=== PATIENT | male | born 1940 ===

== ENCOUNTER 2017-05-08 08:39 | Day surgery (SDC) | payer MEDICARE, OTHER ==
[2017-05-08 08:58] VITALS: BMI 36.5
[2017-05-08 09:55] VITALS: BP 139/65; PULSE 73; TEMP 97.9
[2017-05-08] MEDS ORDERED: Iodixanol 320 MG/ML 100 ML BOTTLE IV ONE (11:38)
[2017-05-08] MEDS ORDERED: Iodixanol 320 MG/ML 200 ML BOTTLE IV ONE (11:38)
[2017-05-08] MEDS ORDERED: Lidocaine 2% Inj (20ml) ONE (11:39)
--- NOTE | 2017-05-08 12:53 | PCM.SURG1 ---
Surgeon's Initial Post Op Note - Surgeon's Notes Surgeon: lizette Paratransit Driver: 0 Type of Anesthesia: IV Sedation Anesthesia Administered By: jc Pre-Operative Diagnosis: claudication right leg Operative Findings: claudication right leg Post-Operative Diagnosis: same Operation Performed: aortofemoral angiogram with selective cath of right Specimen/Specimens Removed: 0 Estimated Blood Loss: EBL {In ML}: 25 Drains Used: No Drains Post-Op Condition: Good Date of Surgery/Procedure: 05/08/17 Time of Surgery/Procedure: 12:53
[2017-05-08] MEDS ORDERED: Oxycodone/Acetaminophen 5/325 mg Tab PO ONE (13:45)
[2017-05-08] MEDS ORDERED: Oxycodone/Acetaminophen 5/325 mg Tab ONE (13:51)
[2017-05-08 16:38] VITALS: RESP 18; O2SAT 100
--- NOTE | 2017-05-09 09:59 | VAS ---
DATE OF PROCEDURE: 05/08/2017 PREOPERATIVE DIAGNOSIS: Claudication, right leg. POSTOPERATIVE DIAGNOSIS: Claudication, right leg. PROCEDURE CARRIED OUT: Aortofemoral angiogram via left groin selective catheterization of right femoral artery. SURGEON: Dr. Baldwin. ROVING SIZER: None. ANESTHESIOLOGIST: Dr. Veronica. ANESTHESIA: Local anesthesia. The patient is a 76-year-old male with severe claudication involving the right leg. OPERATIVE FINDINGS: 1. It should be noted that on similar films, the images are reversed from right to left side. This has to be carefully noted interpreting the films. This is primarily in the aorta and iliac segments. The aorta and iliac artery are free of significant occlusive disease. There was approximately a 30% stenosis in the mid portion of the external iliac artery on the patient's left side. Below this, the superficial femoral artery was patent on the left side. With good runoff via trifurcation with all vessels being seen. There were scattered areas of stenosis throughout this but none greater than 30%. On the patient's right side, there was a flush occlusion of the superficial femoral artery at its origin and reconstitution just at the level of Edu's canal or across the bone. Below this, there was 3-vessel runoff. Subsequent to the performance of the diagnostic arteriogram, a stiff-angled glidewire and a 7-Vietnamese sheath were positioned over the aortic bifurcation in the distal portion of the external iliac artery. Using road mapping techniques and angled films, we were able to cross into the proximal portion of the superficial femoral artery and advance a Glidewire down to the distal portion. Using a variety of wires and techniques, we were unable to adequately reenter into the lumen of the popliteal artery. After attempting this for quite sometime, we abandoned the procedure, deployed a Perclose device on the left. The operation carried out aortofemoral angiogram with selective catheterization of right femoral artery. No intervention was undertaken. If the patient's symptoms continue to worsen, a bypass would be the most likely treatment. Boyd Baldwin Jr., MD cc: Dr. Yarely CABRALES
== END 2017-05-08 16:05 | disposition home or self-care (01) ==
LOC: C.SPRAD 08:39
PROVIDERS: ATTEND Surgery Vascular Surgery
DX: I70.211 Atherosclerosis of native arteries of extremities with intermittent claudication, right leg (principal)

== ENCOUNTER 2017-06-13 06:11 | Inpatient (IN) | payer MEDICARE, OTHER ==
[2017-06-06 08:13] VITALS: BMI 37.5
[2017-06-13] MEDS ORDERED: ceFAZolin IV 2 gm in Dextrose 1 GM/50 ML BAG IVPB ONE (06:49)
[2017-06-13] MEDS ORDERED: HEPARIN-NS 5,000 UNITS/500 ML 10,000 UNIT/1,000 ML BAG IV ONE (06:50)
[2017-06-13] MEDS ORDERED: Thrombin Topical 20,000 Intl Units Spray Kit TOP ONE (06:50)
[2017-06-13] MEDS ORDERED: Iodixanol 320 MG/ML 200 ML BOTTLE IV ONE (06:50)
[2017-06-13] MEDS ORDERED: Bacitracin 50,000 UNIT in Sodium Chloride 0.9% Irrig 1,000 ML IR SCH (07:18)
[2017-06-13] MEDS ORDERED: Etomidate 20 mg/10ml Inj IV ONE (07:24)
[2017-06-13] MEDS ORDERED: Lactated Ringer's 1,000 ML IV ONE ×3 (07:55→13:43)
[2017-06-13] MEDS ORDERED: HEPARIN-NS 5,000 UNITS/500 ML 5,000 UNIT/500 ML BAG IV ONE ×2 (08:55→10:21)
[2017-06-13] MEDS ORDERED: Rocuronium 10 mg/ml (5 ml) ONE (12:39)
[2017-06-13] MEDS ORDERED: Morphine 4 MG/ML VIAL ONE ×2 (13:10→13:13)
[2017-06-13] MEDS ORDERED: Neostigmine Methylsulfate 3mg/3ml Syringe IV ONE (13:29)
--- NOTE | 2017-06-13 15:02 | PCM.SURG1 ---
Surgeon's Initial Post Op Note - Surgeon's Notes Surgeon: Nicolasa Merchandising Lead: PGY4 Type of Anesthesia: General Endo Pre-Operative Diagnosis: R SFA occlusion, PVD Operative Findings: arterial calcifications Post-Operative Diagnosis: R SFA occlusion, PVD Operation Performed: R Femoral-poplital bypass with reversed [place] (right) saphenous vein graft, intraoperative angiogram Specimen/Specimens Removed: N/A Estimated Blood Loss: EBL {In ML}: 500 Blood Products Given: N/A Drains Used: No Drains Post-Op Condition: Good Date of Surgery/Procedure: 06/13/17 Time of Surgery/Procedure: 07:55
[2017-06-13 15:05] LABS: BASO % 0.3 % (0.0-2.0); EOS # 0.2 K/uL (0.0-0.7); EOS % 3.2 % (0.0-4.0); LYMPH # 1.3 K/uL (1.0-4.3); LYMPH % 19.1 % (20.0-40.0); MEAN CELL VOLUME 85.8 fL (80.0-94.0); MEAN CORPUSCULAR HEMOGLOBIN 28.3 pg (27.0-31.0); MEAN PLATELET VOLUME 8.1 fL (7.2-11.7); MONO # 0.5 K/uL (0.0-0.8); MONO % 8.1 % (0.0-10.0); NRBC % 0.1 % (0.0-2.0); RED CELL DISTRIBUTION WIDTH 17.8 % (11.5-14.5); WHITE BLOOD COUNT 6.6 K/uL (4.8-10.8)
[2017-06-13] MEDS: HYDROmorphone 0.5 mg/0.5 ml ISec IVP PRN ×4 (15:24→22:15)
--- NOTE | 2017-06-13 16:48 | RAD ---
Oral contrast only. PROCEDURE: HISTORY: Peripheral vascular disease: Angiogram right leg COMPARISON: None TECHNIQUE: Total fluoroscopic time utilized during the procedure: 21.4 seconds. Total dose 0.67 mGy cm squared FINDINGS: Submitted images from the current procedure: 3 Please refer to the physician's notes performing the procedure. IMPRESSION: Less than 1 hour fluoroscopic time utilized during performance of the procedure
[2017-06-13] MEDS: Sodium Chloride 0.9% 1,000 ML IV SCH (17:00)
[2017-06-13] MEDS: (Novolin R) Insulin Human Regular 100 units/ml vial SC SCH ×2 (17:07→22:21)
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
[2017-06-14] MEDS: Sodium Chloride 0.9% 1,000 ML IV SCH ×3 (02:00→12:39)
[2017-06-14 06:41] LABS: BASO % 0.5 % (0.0-2.0); EOS # 0.1 K/uL (0.0-0.7); EOS % 1.7 % (0.0-4.0); HEMATOCRIT 28.2 % (35.0-51.0); LYMPH # 0.8 K/uL (1.0-4.3); LYMPH % 10.2 % (20.0-40.0); MEAN CELL VOLUME 86.6 fL (80.0-94.0); MEAN CORPUSCULAR HEMOGLOBIN 28.3 pg (27.0-31.0); MEAN CORPUSCULAR HGB CONC 32.6 g/dL (33.0-37.0); MEAN PLATELET VOLUME 8.4 fL (7.2-11.7); MONO # 0.8 K/uL (0.0-0.8); MONO % 9.8 % (0.0-10.0); NRBC % 0.1 % (0.0-2.0); RED CELL DISTRIBUTION WIDTH 18.3 % (11.5-14.5); WHITE BLOOD COUNT 7.8 K/uL (4.8-10.8)
--- NOTE | 2017-06-14 06:58 | OP ---
PROCEDURE DATE: 06/13/2017 PREOPERATIVE DIAGNOSIS: Claudication right leg. POSTOPERATIVE DIAGNOSIS: Claudication right leg. PROCEDURE: Right femoral and popliteal bypass with reverse saphenous vein with intraoperative arteriogram. SURGEON: Boyd Baldwin Jr., MD ASSISTANTS: Dr. Vidal and JUANA Mortensen ANESTHESIA ADMINISTERED BY: Bart. INDICATIONS: The patient is an older middle age man with history of coronary problems in the past, who has severe claudication in the right leg. OPERATIVE FINDINGS: 1. Upon the completion of arteriogram shows satisfactory distal anastomosis with good runoff near the anterior tibial. 2. The proximal anastomosis is carried out uneventfully. The only technical problem encountered in the operation was blood loss of 350 to 500 mL primarily due to bleeding, which occurred at the distal anastomosis after completion of the proximal anastomosis and this was due to some bleeding from wall. Other vessel, which we had to crush to allow for passage of sutures that was severely calcified. After this was remedied, the bleeding stopped and this was checked again and again for bleeding to make sure it is completely dry and it was. Then we closed the wounds with Monocryl and Vicryl sutures, closed the skin with skin clips. The vein has been carefully dissected from the groin down to the mid calf. It was of good size and caliber. The distal anastomosis was carried out using tourniquet control and loop magnification, heparin anticoagulation and proximal anastomosis with clamp control. As I said at the completion, the intraoperative arteriogram was of excellent quality ensure good flow, proximal anastomosis was satisfactory. The patient tolerated the procedure uneventfully without the untoward effects except for the bleeding as I mentioned from the segment of the distal anastomosis, which was remedied quickly. Operation carried out right femoral and popliteal bypass using reverse saphenous vein with intraoperative arteriogram. The anastomosis was carried out below the popliteal artery. Boyd Baldwin Jr., MD
[2017-06-14 07:04] LABS: CHLORIDE 99 mmol/L (98-107); POTASSIUM 4.4 mmol/L (3.6-5.2); SODIUM 130 mmol/L (132-148)
[2017-06-14 07:06] LABS: GFR AFRICAN-AMERICAN > 60
[2017-06-14 07:07] LABS: ALKALINE PHOSPHATASE 57 U/L (38-126); ALT/SGPT 32 U/L (21-72); AST/SGOT 29 U/L (17-59); BLOOD UREA NITROGEN 10 mg/dL (9-20); CARBON DIOXIDE 22 mmol/L (22-30); GLUCOSE,RANDOM 164 mg/dL (75-110); TOTAL PROTEIN 5.8 g/dL (6.3-8.3)
[2017-06-14 07:08] LABS: MAGNESIUM 1.4 mg/dL (1.6-2.3); PHOSPHOROUS 3.7 mg/dL (2.5-4.5)
[2017-06-14] MEDS: (Novolin R) Insulin Human Regular 100 units/ml vial SC SCH ×4 (08:50→22:24)
[2017-06-14] MEDS: Magnesium Sulfate 1 gm in D5W 1 GM/100 ML BAG IVPB SCH ×2 (08:52→10:00)
[2017-06-14] MEDS ORDERED: Home Med 1 UNIT (Mirabegron [Myrbetriq] 50 MG) PO SCH (10:00)
[2017-06-14] MEDS ORDERED: Home Med 1 UNIT (Naloxegol Oxalate [Movantik] 25 MG) PO SCH (10:00)
[2017-06-14] MEDS ORDERED: Home Med 1 UNIT (Febuxostat [Uloric] 40 MG) PO SCH (10:00)
--- NOTE | 2017-06-14 10:14 | CP.PCM.PN ---
Subjective - Date & Time of Evaluation Date of Evaluation: 06/14/17 Time of Evaluation: 07:55 - Subjective Subjective: Vascular surgery Pt S&E, NAEO. Pain well controlled, knee brace off. tolerating diet. No complaints at this time. Objective - Vital Signs/Intake and Output Vital Signs (last 24 hours): Temp Pulse Resp BP Pulse Ox 98.5 F 85 18 148/53 L 100 06/14/17 04:00 06/14/17 07:00 06/14/17 07:00 06/14/17 06:46 06/14/17 07:00 Intake and Output: 06/14/17 06/14/17 06:59 18:59 Intake Total 2160 110 Output Total 1160 200 Balance 1000 -90 - Medications Medications: Current Medications Acetaminophen (Tylenol 325mg Tab) 975 mg PO Q8H [facility] Last Admin: 06/14/17 06:19 Dose: 975 mg Allopurinol (Zyloprim) 100 mg PO DAILY [facility] Last Admin: 06/14/17 10:03 Dose: 100 mg Atenolol (Tenormin) 25 mg PO DAILY [facility] Clopidogrel Bisulfate (Plavix) 75 mg PO DAILY [facility] Last Admin: 06/14/17 10:00 Dose: 75 mg Docusate Sodium (Colace) 100 mg PO BID [facility] Last Admin: 06/14/17 10:00 Dose: 100 mg Escitalopram Oxalate (Lexapro) 10 mg PO DAILY [facility] Last Admin: 06/14/17 10:01 Dose: 10 mg Famotidine (Pepcid) 20 mg PO BID [facility] Last Admin: 06/14/17 10:01 Dose: 20 mg Heparin Sodium (Porcine) (Heparin) 5,000 units SC Q12 [facility] Last Admin: 06/14/17 10:00 Dose: 5,000 units Hydromorphone HCl (Dilaudid) 0.5 mg IVP Q10M PRN PRN Reason: Pain, severe (8-10) Last Admin: 06/13/17 15:45 Dose: 0.5 mg Hydromorphone HCl (Dilaudid) 0.5 mg IVP Q3H PRN PRN Reason: Pain, moderate (4-7) Last Admin: 06/13/17 22:15 Dose: 0.5 mg Sodium Chloride (Sodium Chloride 0.9%) 1,000 mls @ 110 mls/hr IV .Q9H6M [facility] Last Admin: 06/14/17 08:55 Dose: Not Given Insulin Human Regular (Novolin R) 0 unit SC ACHS [facility] PRN Reason: Protocol Last Admin: 06/14/17 08:50 Dose: 3 unit Lisinopril (Zestril) 5 mg PO DAILY [facility] Last Admin: 06/14/17 10:02 Dose: 5 mg Ondansetron HCl (Zofran Inj) 4 mg IVP Q4 PRN PRN Reason: Nausea/Vomiting Rosuvastatin Calcium (Crestor) 5 mg PO HS [facility] Last Admin: 06/13/17 22:14 Dose: 5 mg - Labs Labs: 06/14/17 06:25 06/14/17 06:26 - Constitutional Appears: Non-toxic, No Acute Distress - Head Exam Head Exam: ATRAUMATIC, NORMOCEPHALIC - Respiratory Exam Respiratory Exam: NORMAL BREATHING PATTERN. absent: Respiratory Distress - Cardiovascular Exam Cardiovascular Exam: RRR - GI/Abdominal Exam GI & Abdominal Exam: Soft. absent: Distended, Tenderness - Extremities Exam Extremities Exam: Pedal Edema (mild) Additional comments: Dressing Intact with serosanguinous staining. knee brace removed. PT and DP pulses palpable on R. - Neurological Exam Neurological Exam: Alert, Awake, Oriented x3 - Skin Skin Exam: Dry, Warm Assessment and Plan - Assessment and Plan (Free Text) Assessment: 76M S/P R fem-pop bypass with reversed vein graft POD#1 Plan: Ok to go to floor. Monitor for bleeding, Recheck Hgb in AM. Claudio Recinos DC Art line. Will D/W Dr. Nicolasa Vidal PGY4
[2017-06-14] MEDS: HYDROmorphone 0.5 mg/0.5 ml ISec IVP PRN (14:26)
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
[2017-06-14 18:38] VITALS: RESP 20
[2017-06-15] MEDS: HYDROmorphone 0.5 mg/0.5 ml ISec IVP PRN ×2 (05:46→12:30)
[2017-06-15 06:20] LABS: BASO % 0.2 % (0.0-2.0); EOS # 0.1 K/uL (0.0-0.7); EOS % 1.7 % (0.0-4.0); LYMPH # 0.9 K/uL (1.0-4.3); LYMPH % 12.1 % (20.0-40.0); MEAN CELL VOLUME 86.5 fL (80.0-94.0); MEAN CORPUSCULAR HEMOGLOBIN 28.3 pg (27.0-31.0); MEAN CORPUSCULAR HGB CONC 32.7 g/dL (33.0-37.0); MEAN PLATELET VOLUME 7.8 fL (7.2-11.7); MONO % 12.6 % (0.0-10.0); RED CELL DISTRIBUTION WIDTH 18.7 % (11.5-14.5); WHITE BLOOD COUNT 7.7 K/uL (4.8-10.8)
[2017-06-15 06:35] LABS: CHLORIDE 103 mmol/L (98-107)
[2017-06-15 06:36] LABS: SODIUM 134 mmol/L (132-148)
[2017-06-15 06:38] LABS: ALB/GLOB RATIO 0.9 (1.0-2.1); ALKALINE PHOSPHATASE 85 U/L (38-126); ALT/SGPT 32 U/L (21-72); AST/SGOT 26 U/L (17-59); BILIRUBIN,TOTAL 0.8 mg/dL (0.2-1.3); BLOOD UREA NITROGEN 9 mg/dL (9-20); CARBON DIOXIDE 23 mmol/L (22-30); GFR AFRICAN-AMERICAN > 60; TOTAL PROTEIN 6.2 g/dL (6.3-8.3)
[2017-06-15 06:39] LABS: CALCIUM 8.3 mg/dl (8.6-10.4); GLUCOSE,RANDOM 170 mg/dL (75-110); MAGNESIUM 1.7 mg/dL (1.6-2.3); PHOSPHOROUS 2.8 mg/dL (2.5-4.5)
--- NOTE | 2017-06-15 07:25 | CP.PCM.PN ---
Subjective - Date & Time of Evaluation Date of Evaluation: 06/15/17 Time of Evaluation: 07:20 - Subjective Subjective: Vascular surgery Progress Note for Dr. Baldwin Patient seen and examined at bedside. Overnight, telemetry showed PVCs in trigeminy. EKG was done and no significant change from previous study. Dr. Perera was called and made aware. Pain well controlled and tolerating diet. Patient has no complaints at this time. Objective - Vital Signs/Intake and Output Vital Signs (last 24 hours): Temp Pulse Resp BP Pulse Ox 98.5 F 81 20 113/55 L 99 06/15/17 04:51 06/15/17 04:51 06/14/17 23:45 06/15/17 04:51 06/14/17 23:45 Intake and Output: 06/15/17 06/15/17 06:59 18:59 Intake Total 850 Output Total 1700 Balance -850 - Medications Medications: Current Medications Acetaminophen (Tylenol 325mg Tab) 975 mg PO Q8H [facility] Last Admin: 06/15/17 06:31 Dose: 975 mg Allopurinol (Zyloprim) 100 mg PO DAILY [facility] Last Admin: 06/14/17 10:03 Dose: 100 mg Atenolol (Tenormin) 25 mg PO DAILY [facility] Last Admin: 06/14/17 10:33 Dose: 25 mg Clopidogrel Bisulfate (Plavix) 75 mg PO DAILY [facility] Last Admin: 06/14/17 10:00 Dose: 75 mg Docusate Sodium (Colace) 100 mg PO BID [facility] Last Admin: 06/14/17 17:25 Dose: 100 mg Escitalopram Oxalate (Lexapro) 10 mg PO DAILY [facility] Last Admin: 06/14/17 10:01 Dose: 10 mg Famotidine (Pepcid) 20 mg PO BID [facility] Last Admin: 06/14/17 17:25 Dose: 20 mg Heparin Sodium (Porcine) (Heparin) 5,000 units SC Q12 [facility] Last Admin: 06/14/17 22:27 Dose: 5,000 units Hydromorphone HCl (Dilaudid) 0.5 mg IVP Q10M PRN PRN Reason: Pain, severe (8-10) Last Admin: 06/13/17 15:45 Dose: 0.5 mg Hydromorphone HCl (Dilaudid) 0.5 mg IVP Q3H PRN PRN Reason: Pain, moderate (4-7) Last Admin: 06/15/17 05:46 Dose: 0.5 mg Insulin Human Regular (Novolin R) 0 unit SC [facility] PRN Reason: Protocol Last Admin: 06/14/17 22:24 Dose: Not Given Lisinopril (Zestril) 5 mg PO DAILY [facility] Last Admin: 06/14/17 10:02 Dose: 5 mg Ondansetron HCl (Zofran Inj) 4 mg IVP Q4 PRN PRN Reason: Nausea/Vomiting Rosuvastatin Calcium (Crestor) 5 mg PO HS [facility] Last Admin: 06/14/17 22:27 Dose: 5 mg - Labs Labs: 06/15/17 06:07 06/15/17 06:07 - Constitutional Appears: No Acute Distress - Head Exam Head Exam: ATRAUMATIC, NORMOCEPHALIC - Eye Exam Eye Exam: Normal appearance - ENT Exam ENT Exam: Mucous Membranes Moist - Respiratory Exam Respiratory Exam: NORMAL BREATHING PATTERN - Cardiovascular Exam Cardiovascular Exam: REGULAR RHYTHM - GI/Abdominal Exam GI & Abdominal Exam: Soft. absent: Tenderness - Extremities Exam Extremities Exam: Pedal Edema (mild), Tenderness (mild) Additional comments: Dressing Intact PT and DP pulses palpable on R - Neurological Exam Neurological Exam: Alert, Awake, Oriented x3 - Psychiatric Exam Psychiatric exam: Normal Affect, Normal Mood - Skin Skin Exam: Dry, Intact, Normal Color, Warm Assessment and Plan - Assessment and Plan (Free Text) Plan: 76M s/p R fem-pop bypass with reversed vein graft POD#2 f/u hgb this AM Pain control Continue to monitor pulses - papable DP and PT on R Will DW Dr. Nicolasa Contreras PGY1
[2017-06-15] MEDS: (Novolin R) Insulin Human Regular 100 units/ml vial SC SCH ×4 (07:57→22:17)
[2017-06-15] MEDS ORDERED: Magnesium Hydroxide Susp 30 ml UD PO ONE (10:22)
[2017-06-16] MEDS: (Novolin R) Insulin Human Regular 100 units/ml vial SC SCH ×4 (08:16→22:03)
--- NOTE | 2017-06-16 10:06 | CP.PCM.PN ---
Subjective - Date & Time of Evaluation Date of Evaluation: 06/16/17 Time of Evaluation: 08:05 - Subjective Subjective: SURGERY NOTE FOR DR. RICHARDS 76M POD3 s/p Fem-pop bypass. Patient was S&E at bedside, reports NAEO and has mild R. LE pain that is well managed with his current medications. Patient reports he has been out of bed and is passing flatus. Patient denies fevers, chills, SOB, chest pain. Objective - Vital Signs/Intake and Output Vital Signs (last 24 hours): Temp Pulse Resp BP Pulse Ox 98.1 F 78 20 153/75 H 99 06/16/17 09:08 06/16/17 09:08 06/16/17 09:08 06/16/17 09:08 06/16/17 09:08 Intake and Output: 06/16/17 06/16/17 06:59 18:59 Intake Total 200 Output Total 600 Balance -400 - Medications Medications: Current Medications Acetaminophen (Tylenol 325mg Tab) 975 mg PO Q8H [facility] Last Admin: 06/16/17 06:07 Dose: 975 mg Allopurinol (Zyloprim) 100 mg PO DAILY [facility] Last Admin: 06/15/17 10:45 Dose: 100 mg Atenolol (Tenormin) 25 mg PO DAILY [facility] Last Admin: 06/15/17 10:45 Dose: 25 mg Clopidogrel Bisulfate (Plavix) 75 mg PO DAILY [facility] Last Admin: 06/15/17 10:45 Dose: 75 mg Docusate Sodium (Colace) 100 mg PO BID [facility] Last Admin: 06/15/17 18:27 Dose: 100 mg Escitalopram Oxalate (Lexapro) 10 mg PO DAILY [facility] Last Admin: 06/15/17 10:47 Dose: 10 mg Famotidine (Pepcid) 20 mg PO BID [facility] Last Admin: 06/15/17 18:28 Dose: 20 mg Heparin Sodium (Porcine) (Heparin) 5,000 units SC Q12 [facility] Last Admin: 06/15/17 22:16 Dose: 5,000 units Hydromorphone HCl (Dilaudid) 0.5 mg IVP Q10M PRN PRN Reason: Pain, severe (8-10) Last Admin: 06/13/17 15:45 Dose: 0.5 mg Hydromorphone HCl (Dilaudid) 0.5 mg IVP Q3H PRN PRN Reason: Pain, moderate (4-7) Last Admin: 06/15/17 12:30 Dose: 0.5 mg Insulin Human Regular (Novolin R) 0 unit SC ACHS [facility] PRN Reason: Protocol Last Admin: 06/16/17 08:16 Dose: 2 unit Lisinopril (Zestril) 5 mg PO DAILY [facility] Last Admin: 06/15/17 10:45 Dose: 5 mg Ondansetron HCl (Zofran Inj) 4 mg IVP Q4 PRN PRN Reason: Nausea/Vomiting Rosuvastatin Calcium (Crestor) 5 mg PO HS [facility] Last Admin: 06/15/17 22:16 Dose: 5 mg - Labs Labs: 06/15/17 06:07 06/15/17 06:07 - Constitutional Appears: Non-toxic, No Acute Distress - Respiratory Exam Respiratory Exam: Clear to Ausculation Bilateral, NORMAL BREATHING PATTERN - Cardiovascular Exam Cardiovascular Exam: REGULAR RHYTHM, +S1, +S2 - Extremities Exam Additional comments: Right medial Leg incision site, clean dry intact - new dressing placed - Neurological Exam Neurological Exam: Alert, Awake - Skin Skin Exam: Dry, Intact, Normal Color, Warm Assessment and Plan - Assessment and Plan (Free Text) Assessment: 76M POD3 s/p Fem-pop bypass, vein reserved Plan: -Continue pain management -R. LE dressing changed, c/d/i -Monitor PT, DP pulses Further recs discuss with Dr Nicolasa Larson, PGY2
[2017-06-17] MEDS: HYDROmorphone 0.5 mg/0.5 ml ISec IVP PRN (05:19)
[2017-06-17] MEDS: (Novolin R) Insulin Human Regular 100 units/ml vial SC SCH ×4 (08:32→21:29)
--- NOTE | 2017-06-17 10:28 | CP.PCM.PN ---
Subjective - Date & Time of Evaluation Date of Evaluation: 06/17/17 Time of Evaluation: 10:25 - Subjective Subjective: Had some chest pain last night. Now feeling ok. Objective - Vital Signs/Intake and Output Vital Signs (last 24 hours): Temp Pulse Resp BP Pulse Ox 98.2 F 72 20 138/67 99 06/17/17 07:15 06/17/17 10:00 06/17/17 07:15 06/17/17 10:00 06/17/17 07:15 Intake and Output: 06/17/17 06/17/17 06:59 18:59 Intake Total 500 Balance 500 - Medications Medications: Current Medications Acetaminophen (Tylenol 325mg Tab) 975 mg PO Q8H [facility] Last Admin: 06/17/17 06:32 Dose: 975 mg Allopurinol (Zyloprim) 100 mg PO DAILY [facility] Last Admin: 06/17/17 10:06 Dose: 100 mg Atenolol (Tenormin) 25 mg PO DAILY [facility] Last Admin: 06/17/17 10:06 Dose: 25 mg Clopidogrel Bisulfate (Plavix) 75 mg PO DAILY [facility] Last Admin: 06/17/17 10:06 Dose: 75 mg Docusate Sodium (Colace) 100 mg PO BID [facility] Last Admin: 06/17/17 10:06 Dose: 100 mg Escitalopram Oxalate (Lexapro) 10 mg PO DAILY [facility] Last Admin: 06/17/17 10:05 Dose: 10 mg Famotidine (Pepcid) 20 mg PO BID [facility] Last Admin: 06/17/17 10:06 Dose: 20 mg Hydromorphone HCl (Dilaudid) 0.5 mg IVP Q10M PRN PRN Reason: Pain, severe (8-10) Last Admin: 06/13/17 15:45 Dose: 0.5 mg Insulin Human Regular (Novolin R) 0 unit SC ACHS [facility] PRN Reason: Protocol Last Admin: 06/17/17 08:32 Dose: 4 unit Lisinopril (Zestril) 5 mg PO DAILY [facility] Last Admin: 06/17/17 10:06 Dose: 5 mg Ondansetron HCl (Zofran Inj) 4 mg IVP Q4 PRN PRN Reason: Nausea/Vomiting Rosuvastatin Calcium (Crestor) 5 mg PO HS [facility] Last Admin: 06/16/17 22:02 Dose: 5 mg - Labs Labs: 06/15/17 06:07 06/15/17 06:07 - Head Exam Head Exam: NORMOCEPHALIC - Neck Exam Neck Exam: Normal Inspection - Respiratory Exam Respiratory Exam: NORMAL BREATHING PATTERN - Cardiovascular Exam Cardiovascular Exam: REGULAR RHYTHM - Neurological Exam Neurological Exam: Alert, Oriented x3 Assessment and Plan (1) CAD (coronary artery disease) Assessment & Plan: Stable, Chest pain atypical, check cardiac markers. continue plavix. Status: Acute (2) PAD (peripheral artery disease) Assessment & Plan: S/P surgery. vascular following. Status: Acute (3) Hyperlipidemia Assessment & Plan: Continue lipid lowering agents. Status: Acute
--- NOTE | 2017-06-17 17:13 | CP.PCM.PN ---
Subjective - Date & Time of Evaluation Date of Evaluation: 06/17/17 Time of Evaluation: 06:45 - Subjective Subjective: Vascular Surgery Pt S&E, NAEO. C/O Chest pain that he has had in the past. No other complaints. Objective - Vital Signs/Intake and Output Vital Signs (last 24 hours): Temp Pulse Resp BP Pulse Ox 98.1 F 96 H 20 156/80 H 98 06/17/17 15:35 06/17/17 16:00 06/17/17 15:35 06/17/17 15:35 06/17/17 15:35 Intake and Output: 06/17/17 06/17/17 06:59 18:59 Intake Total 500 500 Balance 500 500 - Medications Medications: Current Medications Acetaminophen (Tylenol 325mg Tab) 975 mg PO Q8H [facility] Last Admin: 06/17/17 14:51 Dose: Not Given Allopurinol (Zyloprim) 100 mg PO DAILY [facility] Last Admin: 06/17/17 10:06 Dose: 100 mg Atenolol (Tenormin) 25 mg PO DAILY [facility] Last Admin: 06/17/17 10:06 Dose: 25 mg Clopidogrel Bisulfate (Plavix) 75 mg PO DAILY [facility] Last Admin: 06/17/17 10:06 Dose: 75 mg Docusate Sodium (Colace) 100 mg PO BID [facility] Last Admin: 06/17/17 10:06 Dose: 100 mg Escitalopram Oxalate (Lexapro) 10 mg PO DAILY [facility] Last Admin: 06/17/17 10:05 Dose: 10 mg Famotidine (Pepcid) 20 mg PO BID [facility] Last Admin: 06/17/17 10:06 Dose: 20 mg Insulin Human Regular (Novolin R) [address] [facility] PRN Reason: Protocol Last Admin: 06/17/17 12:25 Dose: 4 unit Lisinopril (Zestril) 5 mg PO DAILY [facility] Last Admin: 06/17/17 10:06 Dose: 5 mg Ondansetron HCl (Zofran Inj) 4 mg IVP Q4 PRN PRN Reason: Nausea/Vomiting Rosuvastatin Calcium (Crestor) 5 mg PO HS [facility] Last Admin: 06/16/17 22:02 Dose: 5 mg - Labs Labs: 06/15/17 06:07 06/15/17 06:07 - Constitutional Appears: Non-toxic, No Acute Distress - Head Exam Head Exam: ATRAUMATIC, NORMOCEPHALIC - Respiratory Exam Respiratory Exam: NORMAL BREATHING PATTERN. absent: Respiratory Distress - Cardiovascular Exam Cardiovascular Exam: RRR - GI/Abdominal Exam GI & Abdominal Exam: Soft. absent: Distended, Tenderness - Extremities Exam Additional comments: R Groin C/D/I R LE dressing with some serosanguinous staining - Neurological Exam Neurological Exam: Alert, Awake, Oriented x3 - Skin Skin Exam: Dry, Warm Assessment and Plan - Assessment and Plan (Free Text) Assessment: 76M POD$ s/p Fem-pop bypass, with reversed vein Plan: - F/U cardiac enzymes - Rehab planning -Continue pain management -Monitor PT, DP pulses D/W Dr Nicolasa Vidal PGY4
[2017-06-18] MEDS: (Novolin R) Insulin Human Regular 100 units/ml vial SC SCH ×4 (08:19→21:07)
--- NOTE | 2017-06-18 08:31 | CP.PCM.PN ---
Subjective - Date & Time of Evaluation Date of Evaluation: 06/18/17 Time of Evaluation: 07:10 - Subjective Subjective: SURGERY NOTE FOR DR. RICHARDS 76M seen and examined at bedside. Patient denies pain in leg, able to ambulate. Objective - Vital Signs/Intake and Output Vital Signs (last 24 hours): Temp Pulse Resp BP Pulse Ox 98.4 F 76 20 147/85 97 06/18/17 07:49 06/18/17 07:49 06/18/17 07:49 06/18/17 07:49 06/18/17 07:49 Intake and Output: 06/18/17 06/18/17 06:59 18:59 Intake Total 900 Balance 900 - Medications Medications: Current Medications Allopurinol (Zyloprim) 100 mg PO DAILY [facility] Last Admin: 06/17/17 10:06 Dose: 100 mg Clopidogrel Bisulfate (Plavix) 75 mg PO DAILY [facility] Last Admin: 06/17/17 10:06 Dose: 75 mg Docusate Sodium (Colace) 100 mg PO BID [facility] Last Admin: 06/17/17 17:38 Dose: 100 mg Escitalopram Oxalate (Lexapro) 10 mg PO DAILY [facility] Last Admin: 06/17/17 10:05 Dose: 10 mg Famotidine (Pepcid) 20 mg PO BID [facility] Last Admin: 06/17/17 17:38 Dose: 20 mg Insulin Human Regular (Novolin R) 0 unit SC ACHS [facility] PRN Reason: Protocol Last Admin: 06/18/17 08:19 Dose: 3 unit Lisinopril (Zestril) 5 mg PO DAILY [facility] Last Admin: 06/17/17 10:06 Dose: 5 mg Ondansetron HCl (Zofran Inj) 4 mg IVP Q4 PRN PRN Reason: Nausea/Vomiting Oxycodone/Acetaminophen (Percocet 5/325 Mg Tab) 1 tab PO Q4H PRN PRN Reason: Pain, moderate (4-7) Stop: 06/21/17 05:54 Rosuvastatin Calcium (Crestor) 5 mg PO HS [facility] Last Admin: 06/17/17 21:29 Dose: 5 mg - Labs Labs: 06/15/17 06:07 06/15/17 06:07 - Constitutional Appears: Non-toxic, No Acute Distress - Respiratory Exam Respiratory Exam: Clear to Ausculation Bilateral, NORMAL BREATHING PATTERN - Cardiovascular Exam Cardiovascular Exam: REGULAR RHYTHM, +S1, +S2 - Extremities Exam Additional comments: right leg incisions CDI Palpable right leg pulses Doppler signals b/l - Neurological Exam Neurological Exam: Alert, Awake Assessment and Plan - Assessment and Plan (Free Text) Assessment: 76M s/p Right fem-pop bypass with reversed vein Plan: - Patient to work with physical therapy - Clear for DC to rehab Further recs discuss with Dr. Nicolasa Larson, PGY2
--- NOTE | 2017-06-18 09:39 | CP.PCM.PN ---
Subjective - Date & Time of Evaluation Date of Evaluation: 06/18/17 Time of Evaluation: 09:00 - Subjective Subjective: No chest pain or shortness of breath. Objective - Vital Signs/Intake and Output Vital Signs (last 24 hours): Temp Pulse Resp BP Pulse Ox 98.4 F 87 20 149/68 97 06/18/17 07:49 06/18/17 09:20 06/18/17 07:49 06/18/17 09:20 06/18/17 07:49 Intake and Output: 06/18/17 06/18/17 06:59 18:59 Intake Total 900 Balance 900 - Medications Medications: Current Medications Allopurinol (Zyloprim) 100 mg PO DAILY [facility] Last Admin: 06/18/17 09:35 Dose: 100 mg Clopidogrel Bisulfate (Plavix) 75 mg PO DAILY [facility] Last Admin: 06/18/17 09:35 Dose: 75 mg Docusate Sodium (Colace) 100 mg PO BID [facility] Last Admin: 06/18/17 09:35 Dose: 100 mg Escitalopram Oxalate (Lexapro) 10 mg PO DAILY [facility] Last Admin: 06/18/17 09:35 Dose: 10 mg Famotidine (Pepcid) 20 mg PO BID [facility] Last Admin: 06/18/17 09:35 Dose: 20 mg Insulin Human Regular (Novolin R) 0 unit SC [facility] PRN Reason: Protocol Last Admin: 06/18/17 08:19 Dose: 3 unit Lisinopril (Zestril) 5 mg PO DAILY [facility] Last Admin: 06/18/17 09:35 Dose: 5 mg Ondansetron HCl (Zofran Inj) 4 mg IVP Q4 PRN PRN Reason: Nausea/Vomiting Oxycodone/Acetaminophen (Percocet 5/325 Mg Tab) 1 tab PO Q4H PRN PRN Reason: Pain, moderate (4-7) Stop: 06/21/17 05:54 Rosuvastatin Calcium (Crestor) 5 mg PO [facility] Last Admin: 06/17/17 21:29 Dose: 5 mg - Labs Labs: 06/15/17 06:07 06/15/17 06:07 - Head Exam Head Exam: NORMOCEPHALIC - Neck Exam Neck Exam: Normal Inspection - Respiratory Exam Respiratory Exam: NORMAL BREATHING PATTERN - Extremities Exam Extremities Exam: Normal Inspection - Neurological Exam Neurological Exam: Alert, Oriented x3 Assessment and Plan (1) CAD (coronary artery disease) Assessment & Plan: Stable, may D/C to rehab, continue current cardiac care.Follow-up as out patient. Discussed with patient. Status: Acute (2) PAD (peripheral artery disease) Assessment & Plan: Feeling better, pain has improved. Continue plavix. Status: Acute (3) Hyperlipidemia Status: Acute
[2017-06-18] MEDS: Oxycodone/Acetaminophen 5/325 mg Tab PO PRN ×3 (11:28→23:56)
[2017-06-19] MEDS: Oxycodone/Acetaminophen 5/325 mg Tab PO PRN ×3 (08:29→21:35)
[2017-06-19] MEDS: (Novolin R) Insulin Human Regular 100 units/ml vial SC SCH ×4 (08:29→22:00)
--- NOTE | 2017-06-19 11:09 | CP.PCM.PN ---
Subjective - Date & Time of Evaluation Date of Evaluation: 06/19/17 Time of Evaluation: 11:05 - Subjective Subjective: Resting comfortably, awaiting for transfer to rehab. Objective - Vital Signs/Intake and Output Vital Signs (last 24 hours): Temp Pulse Resp BP Pulse Ox 98.4 F 83 20 128/71 96 06/19/17 09:00 06/19/17 10:13 06/19/17 08:05 06/19/17 10:13 06/19/17 08:05 Intake and Output: 06/19/17 06/19/17 06:59 18:59 Intake Total 400 Balance 400 - Medications Medications: Current Medications Allopurinol (Zyloprim) 100 mg PO DAILY [facility] Last Admin: 06/19/17 10:13 Dose: 100 mg Clopidogrel Bisulfate (Plavix) 75 mg PO DAILY [facility] Last Admin: 06/19/17 10:13 Dose: 75 mg Docusate Sodium (Colace) 100 mg PO BID [facility] Last Admin: 06/19/17 10:14 Dose: 100 mg Escitalopram Oxalate (Lexapro) 10 mg PO DAILY [facility] Last Admin: 06/19/17 10:14 Dose: 10 mg Famotidine (Pepcid) 20 mg PO BID [facility] Last Admin: 06/19/17 10:13 Dose: 20 mg Insulin Human Regular (Novolin R) 0 unit SC [facility] PRN Reason: Protocol Last Admin: 06/19/17 08:29 Dose: 2 unit Lisinopril (Zestril) 5 mg PO DAILY [facility] Last Admin: 06/19/17 10:13 Dose: 5 mg Ondansetron HCl (Zofran Inj) 4 mg IVP Q4 PRN PRN Reason: Nausea/Vomiting Oxycodone/Acetaminophen (Percocet 5/325 Mg Tab) 1 tab PO Q4H PRN PRN Reason: Pain, moderate (4-7) Stop: 06/21/17 05:54 Last Admin: 06/19/17 08:29 Dose: 1 tab Rosuvastatin Calcium (Crestor) 5 mg PO [facility] Last Admin: 06/18/17 21:24 Dose: 5 mg - Labs Labs: 06/15/17 06:07 06/15/17 06:07 - Head Exam Head Exam: NORMOCEPHALIC - Neck Exam Neck Exam: Normal Inspection - Respiratory Exam Respiratory Exam: NORMAL BREATHING PATTERN - Cardiovascular Exam Cardiovascular Exam: REGULAR RHYTHM - Extremities Exam Extremities Exam: Normal Inspection - Neurological Exam Neurological Exam: Alert, Oriented x3 Assessment and Plan (1) CAD (coronary artery disease) Assessment & Plan: Stable, continue current care. May D/C telemetry. Status: Acute (2) PAD (peripheral artery disease) Assessment & Plan: S/P surgery. No new issues. Status: Acute (3) Hyperlipidemia Assessment & Plan: Continue lipid lowering agents. Status: Acute
[2017-06-20] MEDS: Oxycodone/Acetaminophen 5/325 mg Tab PO PRN ×2 (06:24→18:33)
[2017-06-20] MEDS: (Novolin R) Insulin Human Regular 100 units/ml vial SC SCH ×4 (08:25→21:55)
--- NOTE | 2017-06-20 11:22 | CP.PCM.PN ---
Subjective - Date & Time of Evaluation Date of Evaluation: 06/20/17 Time of Evaluation: 11:20 - Subjective Subjective: SURGERY NOTE FOR DR. RICHARDS 76M seen and examined at the bedside. Objective - Vital Signs/Intake and Output Vital Signs (last 24 hours): Temp Pulse Resp BP Pulse Ox 98.1 F 71 20 144/73 98 06/20/17 08:17 06/20/17 10:52 06/20/17 08:17 06/20/17 10:52 06/20/17 08:17 Intake and Output: 06/20/17 06/20/17 06:59 18:59 Intake Total 240 Balance 240 - Medications Medications: Current Medications Allopurinol (Zyloprim) 100 mg PO DAILY [facility] Last Admin: 06/20/17 10:53 Dose: 100 mg Clopidogrel Bisulfate (Plavix) 75 mg PO DAILY [facility] Last Admin: 06/20/17 10:52 Dose: 75 mg Docusate Sodium (Colace) 100 mg PO BID [facility] Last Admin: 06/20/17 10:52 Dose: 100 mg Escitalopram Oxalate (Lexapro) 10 mg PO DAILY [facility] Last Admin: 06/20/17 10:52 Dose: 10 mg Famotidine (Pepcid) 20 mg PO BID [facility] Last Admin: 06/20/17 10:52 Dose: 20 mg Insulin Human Regular (Novolin R) 0 unit SC [facility] PRN Reason: Protocol Last Admin: 06/20/17 08:25 Dose: 3 unit Lisinopril (Zestril) 5 mg PO DAILY [facility] Last Admin: 06/20/17 10:53 Dose: 5 mg Ondansetron HCl (Zofran Inj) 4 mg IVP Q4 PRN PRN Reason: Nausea/Vomiting Oxycodone/Acetaminophen (Percocet 5/325 Mg Tab) 1 tab PO Q4H PRN PRN Reason: Pain, moderate (4-7) Stop: 06/21/17 05:54 Last Admin: 06/20/17 06:24 Dose: 1 tab Rosuvastatin Calcium (Crestor) 5 mg PO HS [facility] Last Admin: 06/19/17 21:30 Dose: 5 mg - Labs Labs: 06/15/17 06:07 06/15/17 06:07 - Constitutional Appears: Non-toxic, No Acute Distress - Respiratory Exam Respiratory Exam: Clear to Ausculation Bilateral, NORMAL BREATHING PATTERN - Cardiovascular Exam Cardiovascular Exam: REGULAR RHYTHM, +S1, +S2 - Back Exam Additional comments: right LE incision with dressing CDI - Neurological Exam Neurological Exam: Alert, Awake Assessment and Plan - Assessment and Plan (Free Text) Assessment: 76M s/p Right fem-pop bypass with reversed vein POD7 Plan: - Clear for DC to rehab Further recs discuss with Dr. Nicolasa Larson, PGY2
--- NOTE | 2017-06-20 14:41 | CP.PCM.PN ---
Subjective - Date & Time of Evaluation Date of Evaluation: 06/20/17 Time of Evaluation: 14:41 - Subjective Subjective: Resting comfortably. Objective - Vital Signs/Intake and Output Vital Signs (last 24 hours): Temp Pulse Resp BP Pulse Ox 98.1 F 71 20 144/73 98 06/20/17 08:17 06/20/17 10:52 06/20/17 08:17 06/20/17 10:52 06/20/17 08:17 Intake and Output: 06/20/17 06/20/17 06:59 18:59 Intake Total 240 Balance 240 - Medications Medications: Current Medications Allopurinol (Zyloprim) 100 mg PO DAILY [facility] Last Admin: 06/20/17 10:53 Dose: 100 mg Clopidogrel Bisulfate (Plavix) 75 mg PO DAILY [facility] Last Admin: 06/20/17 10:52 Dose: 75 mg Docusate Sodium (Colace) 100 mg PO BID [facility] Last Admin: 06/20/17 10:52 Dose: 100 mg Escitalopram Oxalate (Lexapro) 10 mg PO DAILY [facility] Last Admin: 06/20/17 10:52 Dose: 10 mg Famotidine (Pepcid) 20 mg PO BID [facility] Last Admin: 06/20/17 10:52 Dose: 20 mg Insulin Human Regular (Novolin R) 0 unit SC [facility] PRN Reason: Protocol Last Admin: 06/20/17 12:48 Dose: 4 unit Lisinopril (Zestril) 5 mg PO DAILY [facility] Last Admin: 06/20/17 10:53 Dose: 5 mg Ondansetron HCl (Zofran Inj) 4 mg IVP Q4 PRN PRN Reason: Nausea/Vomiting Oxycodone/Acetaminophen (Percocet 5/325 Mg Tab) 1 tab PO Q4H PRN PRN Reason: Pain, moderate (4-7) Stop: 06/21/17 05:54 Last Admin: 06/20/17 06:24 Dose: 1 tab Rosuvastatin Calcium (Crestor) 5 mg PO HS [facility] Last Admin: 06/19/17 21:30 Dose: 5 mg - Labs Labs: 06/15/17 06:07 06/15/17 06:07 Assessment and Plan (1) CAD (coronary artery disease) Status: Acute (2) PAD (peripheral artery disease) Status: Acute (3) Hyperlipidemia Status: Acute
[2017-06-20] MEDS ORDERED: POLYETHYLENE GLYCOL 3350 17 GM/Dose PACKET PO ONE (20:46)
[2017-06-21] MEDS: Oxycodone/Acetaminophen 5/325 mg Tab PO PRN ×3 (05:33→21:26)
[2017-06-21] MEDS: (Novolin R) Insulin Human Regular 100 units/ml vial SC SCH ×4 (08:11→22:00)
--- NOTE | 2017-06-21 09:10 | CP.PCM.PN ---
Subjective - Date & Time of Evaluation Date of Evaluation: 06/21/17 Time of Evaluation: 09:07 - Subjective Subjective: Vascular Surgery - Dr. Baldwin Pt S&ERylie WADDELL. Pt deneis any complaints this morning. Dressing was changed yesterday afternoon by nursing, is C/D/I. Objective - Vital Signs/Intake and Output Vital Signs (last 24 hours): Temp Pulse Resp BP Pulse Ox 97.7 F 70 20 127/75 96 06/21/17 08:06 06/21/17 08:06 06/21/17 08:06 06/21/17 08:06 06/21/17 08:06 Intake and Output: 06/21/17 06/21/17 06:59 18:59 Intake Total 240 Balance 240 - Medications Medications: Current Medications Allopurinol (Zyloprim) 100 mg PO DAILY [facility] Last Admin: 06/20/17 10:53 Dose: 100 mg Clopidogrel Bisulfate (Plavix) 75 mg PO DAILY [facility] Last Admin: 06/20/17 10:52 Dose: 75 mg Docusate Sodium (Colace) 100 mg PO BID [facility] Last Admin: 06/20/17 17:17 Dose: 100 mg Escitalopram Oxalate (Lexapro) 10 mg PO DAILY [facility] Last Admin: 06/20/17 10:52 Dose: 10 mg Famotidine (Pepcid) 20 mg PO BID [facility] Last Admin: 06/20/17 17:17 Dose: 20 mg Insulin Human Regular (Novolin R) 0 unit SC ACHS [facility] PRN Reason: Protocol Last Admin: 06/21/17 08:11 Dose: 2 unit Lisinopril (Zestril) 5 mg PO DAILY [facility] Last Admin: 06/20/17 10:53 Dose: 5 mg Ondansetron HCl (Zofran Inj) 4 mg IVP Q4 PRN PRN Reason: Nausea/Vomiting Rosuvastatin Calcium (Crestor) 5 mg PO HS [facility] Last Admin: 06/20/17 21:55 Dose: 5 mg - Labs Labs: 06/15/17 06:07 06/15/17 06:07 - Constitutional Appears: No Acute Distress - Head Exam Head Exam: ATRAUMATIC, NORMAL INSPECTION, NORMOCEPHALIC - Respiratory Exam Respiratory Exam: NORMAL BREATHING PATTERN. absent: Respiratory Distress - Extremities Exam Extremities Exam: Normal Inspection. absent: Pedal Edema Additional comments: Dressing R L C/D/I - Neurological Exam Neurological Exam: Alert, Oriented x3 - Skin Skin Exam: Dry, Intact Assessment and Plan - Assessment and Plan (Free Text) Assessment: 76M s/p Right fem-pop bypass with reversed vein POD8 Plan: - Awaiting DC to rehab - Cleared for DC from surgical standpoint - Continue daily dressing changes as ordered Dw Dr Cindy Bruno PGy3
[2017-06-21] MEDS ORDERED: HYDROmorphone 0.5 mg/0.5 ml ISec IVP PRN (13:48)
[2017-06-22] MEDS: Oxycodone/Acetaminophen 5/325 mg Tab PO PRN ×2 (04:31→10:35)
[2017-06-22] MEDS: (Novolin R) Insulin Human Regular 100 units/ml vial SC SCH ×4 (08:22→21:28)
--- NOTE | 2017-06-22 12:12 | CP.PCM.PN ---
Subjective - Date & Time of Evaluation Date of Evaluation: 06/22/17 Time of Evaluation: 06:20 - Subjective Subjective: Vascular Surgery - Dr. Baldwin Pt S&E at bedside this AM. No acute events overnight. Pt deneis any complaints this morning. Dressing was changed afternoon by nursing- C/D/I. Pt getting anxious about discharge to rehab Objective - Vital Signs/Intake and Output Vital Signs (last 24 hours): Temp Pulse Resp BP Pulse Ox 97.5 F L 70 20 122/66 96 06/22/17 08:00 06/22/17 08:00 06/22/17 08:00 06/22/17 09:10 06/22/17 08:00 Intake and Output: 06/22/17 06/22/17 06:59 18:59 Intake Total 240 Balance 240 - Medications Medications: Current Medications Allopurinol (Zyloprim) 100 mg PO DAILY [facility] Last Admin: 06/22/17 09:11 Dose: 100 mg Clopidogrel Bisulfate (Plavix) 75 mg PO DAILY [facility] Last Admin: 06/22/17 09:11 Dose: 75 mg Docusate Sodium (Colace) 100 mg PO BID [facility] Last Admin: 06/22/17 09:11 Dose: 100 mg Escitalopram Oxalate (Lexapro) 10 mg PO DAILY [facility] Last Admin: 06/22/17 09:11 Dose: 10 mg Famotidine (Pepcid) 20 mg PO BID [facility] Last Admin: 06/22/17 09:11 Dose: 20 mg Insulin Human Regular (Novolin R) [address] [facility] PRN Reason: Protocol Last Admin: 06/22/17 08:22 Dose: 2 unit Lisinopril (Zestril) 5 mg PO DAILY [facility] Last Admin: 06/22/17 09:11 Dose: 5 mg Ondansetron HCl (Zofran Inj) 4 mg IVP Q4 PRN PRN Reason: Nausea/Vomiting Oxycodone/Acetaminophen (Percocet 5/325 Mg Tab) 1 tab PO Q4H PRN PRN Reason: Pain, moderate (4-7) Stop: 06/24/17 16:24 Last Admin: 06/22/17 10:35 Dose: 1 tab Rosuvastatin Calcium (Crestor) 5 mg PO [facility] Last Admin: 06/21/17 21:13 Dose: 5 mg - Labs Labs: 06/15/17 06:07 06/15/17 06:07 - Constitutional Appears: No Acute Distress - Eye Exam Eye Exam: EOMI - ENT Exam ENT Exam: Mucous Membranes Moist - Respiratory Exam Respiratory Exam: NORMAL BREATHING PATTERN. absent: Accessory Muscle Use, Rales , Rhonchi - Cardiovascular Exam Cardiovascular Exam: +S1, +S2 - GI/Abdominal Exam GI & Abdominal Exam: Soft. absent: Distended, Firm, Tenderness, Rebound - Extremities Exam Additional comments: palpable Right DP pulse - Neurological Exam Neurological Exam: Alert, Awake, Oriented x3 - Psychiatric Exam Psychiatric exam: Normal Affect Assessment and Plan - Assessment and Plan (Free Text) Assessment: 76M s/p Right fem-pop bypass with reversed vein POD#9 Plan: - Awaiting DC to rehab - Cleared for DC from surgical standpoint - Continue daily dressing changes as ordered - further recs per Dr. Nicolasa Blum PGY1
--- NOTE | 2017-06-22 13:23 | CP.PCM.PN ---
Subjective - Date & Time of Evaluation Date of Evaluation: 06/22/17 Time of Evaluation: 13:20 - Subjective Subjective: Resting comfortably, no chest pain only complain is the swelling and pain in the leg where he had surgery. Objective - Vital Signs/Intake and Output Vital Signs (last 24 hours): Temp Pulse Resp BP Pulse Ox 97.5 F L 70 20 122/66 96 06/22/17 08:00 06/22/17 08:00 06/22/17 08:00 06/22/17 09:10 06/22/17 08:00 Intake and Output: 06/22/17 06/22/17 06:59 18:59 Intake Total 240 Balance 240 - Medications Medications: Current Medications Allopurinol (Zyloprim) 100 mg PO DAILY [facility] BEDS [facility] Last Admin: 06/22/17 09:11 Dose: 100 mg Clopidogrel Bisulfate (Plavix) 75 mg PO DAILY [facility] 234 B[facility]S [facility] Last Admin: 06/22/17 09:11 Dose: 75 mg Docusate Sodium (Colace) 100 mg PO BID [facility] 234 BEDS [facility] Last Admin: 06/22/17 09:11 Dose: 100 mg Escitalopram Oxalate (Lexapro) 10 mg PO DAILY [facility] 234 [facility]S [facility] Last Admin: 06/22/17 09:11 Dose: 10 mg Famotidine (Pepcid) 20 mg PO BID [facility] 234 [facility]S [facility] Last Admin: 06/22/17 09:11 Dose: 20 mg Insulin Human Regular (Novolin R) 0 unit SC [facility] PRN Reason: Protocol Last Admin: 06/22/17 12:33 Dose: 2 unit Lisinopril (Zestril) 5 mg PO DAILY [facility] 234 [facility]S [facility] Last Admin: 06/22/17 09:11 Dose: 5 mg Ondansetron HCl (Zofran Inj) 4 mg IVP Q4 PRN PRN Reason: Nausea/Vomiting Oxycodone/Acetaminophen (Percocet 5/325 Mg Tab) 1 tab PO Q4H PRN PRN Reason: Pain, moderate (4-7) Stop: 06/24/17 16:24 Last Admin: 06/22/17 10:35 Dose: 1 tab Rosuvastatin Calcium (Crestor) 5 mg PO HS [facility] 234 BEDS [facility] Last Admin: 06/21/17 21:13 Dose: 5 mg - Labs Labs: 06/15/17 06:07 06/15/17 06:07 - Head Exam Head Exam: NORMOCEPHALIC - Neck Exam Neck Exam: Normal Inspection - Respiratory Exam Respiratory Exam: NORMAL BREATHING PATTERN - Cardiovascular Exam Cardiovascular Exam: REGULAR RHYTHM - Extremities Exam Extremities Exam: Pedal Edema - Neurological Exam Neurological Exam: Alert, Oriented x3 Assessment and Plan (1) CAD (coronary artery disease) Assessment & Plan: Stable, risk factor modification. Status: Acute (2) PAD (peripheral artery disease) Assessment & Plan: Continue plavix, leg elevation and PT/OT. Status: Acute (3) Hyperlipidemia Assessment & Plan: Continue crestor. Status: Acute
--- NOTE | 2017-06-23 07:34 | CP.PCM.PN ---
Subjective - Date & Time of Evaluation Date of Evaluation: 06/23/17 Time of Evaluation: 07:32 - Subjective Subjective: Vasc Sx: Dr Baldwin Pt S&E. NAEO. Resting comfortably. Denies complaints. Awaiting insurance confirmation for rehab transfer. Objective - Vital Signs/Intake and Output Vital Signs (last 24 hours): Temp Pulse Resp BP Pulse Ox 98.6 F 59 L 20 136/71 96 06/22/17 23:40 06/22/17 23:40 06/22/17 23:40 06/22/17 23:40 06/22/17 23:40 Intake and Output: 06/23/17 06/23/17 06:59 18:59 Intake Total 240 Balance 240 - Medications Medications: Current Medications Allopurinol (Zyloprim) 100 mg PO DAILY [facility] Last Admin: 06/22/17 09:11 Dose: 100 mg Clopidogrel Bisulfate (Plavix) 75 mg PO DAILY [facility] Last Admin: 06/22/17 09:11 Dose: 75 mg Docusate Sodium (Colace) 100 mg PO BID [facility] Last Admin: 06/22/17 17:51 Dose: 100 mg Escitalopram Oxalate (Lexapro) 10 mg PO DAILY [facility] Last Admin: 06/22/17 09:11 Dose: 10 mg Famotidine (Pepcid) 20 mg PO BID [facility] Last Admin: 06/22/17 17:51 Dose: 20 mg Insulin Human Regular (Novolin R) 0 unit SC [facility] PRN Reason: Protocol Last Admin: 06/22/17 21:28 Dose: Not Given Lisinopril (Zestril) 5 mg PO DAILY [facility] Last Admin: 06/22/17 09:11 Dose: 5 mg Ondansetron HCl (Zofran Inj) 4 mg IVP Q4 PRN PRN Reason: Nausea/Vomiting Oxycodone/Acetaminophen (Percocet 5/325 Mg Tab) 1 tab PO Q4H PRN PRN Reason: Pain, moderate (4-7) Stop: 06/24/17 16:24 Last Admin: 06/22/17 10:35 Dose: 1 tab Rosuvastatin Calcium (Crestor) 5 mg PO [facility] Last Admin: 06/22/17 21:28 Dose: 5 mg - Labs Labs: 06/15/17 06:07 06/15/17 06:07 - Constitutional Appears: Non-toxic, No Acute Distress - Head Exam Head Exam: NORMAL INSPECTION - Respiratory Exam Respiratory Exam: absent: Accessory Muscle Use, Respiratory Distress - Cardiovascular Exam Cardiovascular Exam: REGULAR RHYTHM - Extremities Exam Extremities Exam: absent: Calf Tenderness, Pedal Edema Additional comments: incision c/d/i - Neurological Exam Neurological Exam: Alert, Awake Assessment and Plan - Assessment and Plan (Free Text) Assessment: 76M POD#10 s/p right fem-pop bypass Plan: awaiting insurance approval of rehab transfer discharge order already placed d/w Dr Nicolasa Deng, PGY3
[2017-06-23] MEDS: (Novolin R) Insulin Human Regular 100 units/ml vial SC SCH ×4 (08:10→22:01)
[2017-06-23] MEDS: Oxycodone/Acetaminophen 5/325 mg Tab PO PRN (08:11)
--- NOTE | 2017-06-23 17:04 | CP.PCM.PN ---
Subjective - Date & Time of Evaluation Date of Evaluation: 06/23/17 Time of Evaluation: 17:02 - Subjective Subjective: Resting comfortably, No chest pain or shortness of breath. Objective - Vital Signs/Intake and Output Vital Signs (last 24 hours): Temp Pulse Resp BP Pulse Ox 98.5 F 77 20 126/52 L 98 06/23/17 15:50 06/23/17 15:50 06/23/17 15:50 06/23/17 15:50 06/23/17 15:50 Intake and Output: 06/23/17 06/23/17 06:59 18:59 Intake Total 240 480 Balance 240 480 - Medications Medications: Current Medications Allopurinol (Zyloprim) 100 mg PO DAILY [facility] Last Admin: 06/23/17 09:39 Dose: 100 mg Clopidogrel Bisulfate (Plavix) 75 mg PO DAILY [facility] Last Admin: 06/23/17 09:39 Dose: 75 mg Docusate Sodium (Colace) 100 mg PO TID [facility] Last Admin: 06/23/17 13:27 Dose: 100 mg Escitalopram Oxalate (Lexapro) 10 mg PO DAILY [facility] Last Admin: 06/23/17 09:39 Dose: 10 mg Famotidine (Pepcid) 20 mg PO BID [facility] Last Admin: 06/23/17 09:39 Dose: 20 mg Insulin Human Regular (Novolin R) 0 unit SC [facility] PRN Reason: Protocol Last Admin: 06/23/17 12:33 Dose: 4 unit Lisinopril (Zestril) 5 mg PO DAILY [facility] Last Admin: 06/23/17 09:39 Dose: 5 mg Ondansetron HCl (Zofran Inj) 4 mg IVP Q4 PRN PRN Reason: Nausea/Vomiting Oxycodone/Acetaminophen (Percocet 5/325 Mg Tab) 1 tab PO Q4H PRN PRN Reason: Pain, moderate (4-7) Stop: 06/24/17 16:24 Last Admin: 06/23/17 08:11 Dose: 1 tab Rosuvastatin Calcium (Crestor) 5 mg PO HS [facility] Last Admin: 06/22/17 21:28 Dose: 5 mg - Labs Labs: 06/15/17 06:07 06/15/17 06:07 - Head Exam Head Exam: NORMOCEPHALIC - Neck Exam Neck Exam: Normal Inspection - Respiratory Exam Respiratory Exam: NORMAL BREATHING PATTERN - Cardiovascular Exam Cardiovascular Exam: REGULAR RHYTHM - Extremities Exam Extremities Exam: Normal Inspection - Neurological Exam Neurological Exam: Alert, Oriented x3 Assessment and Plan (1) CAD (coronary artery disease) Assessment & Plan: No new issues, continue current acre. Status: Acute (2) PAD (peripheral artery disease) Assessment & Plan: S/P Bypass, continue plavix. risk factor modification. Status: Acute (3) Hyperlipidemia Assessment & Plan: Continue Crestor. Status: Acute
--- NOTE | 2017-06-24 06:43 | CP.PCM.PCO ---
Physician Communication Note - Physician Communication Note Physician Communication Note: Pt just pending insurance approval for [employer]. no acute issues
[2017-06-24] MEDS: (Novolin R) Insulin Human Regular 100 units/ml vial SC SCH ×4 (07:58→21:33)
[2017-06-24] MEDS: Levothyroxine 25 MCG TAB PO SCH (13:27)
[2017-06-24] MEDS: Oxycodone/Acetaminophen 5/325 mg Tab PO PRN (14:10)
[2017-06-25] MEDS: Levothyroxine 25 MCG TAB PO SCH (06:00)
[2017-06-25] MEDS: (Novolin R) Insulin Human Regular 100 units/ml vial SC SCH ×4 (08:45→21:58)
--- NOTE | 2017-06-25 09:14 | CP.PCM.PN ---
Subjective - Date & Time of Evaluation Date of Evaluation: 06/25/17 Time of Evaluation: 09:10 - Subjective Subjective: Patient was seen at bedside in no acute distress. No acute events overnight. Patient is waiting for insurance approval for rehab placement. Objective - Vital Signs/Intake and Output Vital Signs (last 24 hours): Temp Pulse Resp BP Pulse Ox 98.5 F 99 H 20 134/72 95 06/25/17 08:25 06/25/17 08:25 06/25/17 08:25 06/25/17 08:25 06/25/17 08:25 Intake and Output: 06/25/17 06/25/17 06:59 18:59 Intake Total 120 Output Total 800 Balance -680 - Medications Medications: Current Medications Allopurinol (Zyloprim) 100 mg PO DAILY [facility] 234 B[facility]S [facility] Last Admin: 06/24/17 09:07 Dose: 100 mg Clopidogrel Bisulfate (Plavix) 75 mg PO DAILY [facility] 234 [facility]S [facility] Last Admin: 06/24/17 09:07 Dose: 75 mg Docusate Sodium (Colace) 100 mg PO TID [facility] 234 [facility]S [facility] Last Admin: 06/24/17 17:02 Dose: 100 mg Escitalopram Oxalate (Lexapro) 10 mg PO DAILY [facility] 234 [facility]S [facility] Last Admin: 06/24/17 09:10 Dose: 10 mg Famotidine (Pepcid) 20 mg PO BID [facility] 234 [facility]S [facility] Last Admin: 06/24/17 17:02 Dose: 20 mg Insulin Human Regular (Novolin R) 0 unit SC [facility] 234 [facility]EDS [facility] PRN Reason: Protocol Last Admin: 06/24/17 21:33 Dose: Not Given Levothyroxine Sodium (Synthroid) 25 mcg PO DAILY@0630 [facility]CLUDE 234 BEDS AT [facility] Last Admin: 06/25/17 06:00 Dose: 25 mcg Lisinopril (Zestril) 5 mg PO DAILY [facility] 234 BEDS [facility] Last Admin: 06/24/17 09:07 Dose: 5 mg Ondansetron HCl (Zofran Inj) 4 mg IVP Q4 PRN PRN Reason: Nausea/Vomiting Rosuvastatin Calcium (Crestor) 5 mg PO HS [facility] 234 BEDS [facility] Last Admin: 06/24/17 21:29 Dose: 5 mg - Labs Labs: 06/15/17 06:07 06/15/17 06:07 - Head Exam Head Exam: ATRAUMATIC, NORMAL INSPECTION - Eye Exam Eye Exam: EOMI, Normal appearance - ENT Exam ENT Exam: Mucous Membranes Moist - Respiratory Exam Respiratory Exam: Clear to Ausculation Bilateral, NORMAL BREATHING PATTERN. absent: Rales, Rhonchi, Wheezes - Cardiovascular Exam Cardiovascular Exam: REGULAR RHYTHM, +S1, +S2 - GI/Abdominal Exam GI & Abdominal Exam: Soft, Normal Bowel Sounds. absent: Distended, Tenderness - Extremities Exam Extremities Exam: Pedal Edema, Tenderness (post-op, RLE) - Neurological Exam Neurological Exam: Alert, Awake, Oriented x3 - Psychiatric Exam Psychiatric exam: Normal Affect, Normal Mood - Skin Skin Exam: Dry, Intact, Normal Color, Warm Additional comments: RLE- serosanguinous drainage Assessment and Plan - Assessment and Plan (Free Text) Assessment: 67 year old male s/p right femoral popliteal bypass. - Patient waiting for insurance to approve transfer to rehab. - Continue wound care.
--- NOTE | 2017-06-25 18:02 | CP.PCM.PN ---
Subjective - Date & Time of Evaluation Date of Evaluation: 06/25/17 Time of Evaluation: 18:00 - Subjective Subjective: Resting, no new complaints. Objective - Vital Signs/Intake and Output Vital Signs (last 24 hours): Temp Pulse Resp BP Pulse Ox 98.2 F 68 20 125/71 99 06/25/17 17:15 06/25/17 17:15 06/25/17 17:15 06/25/17 17:15 06/25/17 17:15 Intake and Output: 06/25/17 06/25/17 06:59 18:59 Intake Total 120 Output Total 800 Balance -680 - Medications Medications: Current Medications Allopurinol (Zyloprim) 100 mg PO DAILY [facility] Last Admin: 06/25/17 10:32 Dose: 100 mg Clopidogrel Bisulfate (Plavix) 75 mg PO DAILY [facility] Last Admin: 06/25/17 10:32 Dose: 75 mg Docusate Sodium (Colace) 100 mg PO TID [facility] Last Admin: 06/25/17 13:34 Dose: 100 mg Escitalopram Oxalate (Lexapro) 10 mg PO DAILY [facility] Last Admin: 06/25/17 10:32 Dose: 10 mg Famotidine (Pepcid) 20 mg PO BID [facility] Last Admin: 06/25/17 10:32 Dose: 20 mg Insulin Human Regular (Novolin R) 0 unit SC ACHS [facility] PRN Reason: Protocol Last Admin: 06/25/17 17:30 Dose: 4 unit Levothyroxine Sodium (Synthroid) 25 mcg PO DAILY@0630 [facility] Last Admin: 06/25/17 06:00 Dose: 25 mcg Lisinopril (Zestril) 5 mg PO DAILY [facility] Last Admin: 06/25/17 10:32 Dose: 5 mg Ondansetron HCl (Zofran Inj) 4 mg IVP Q4 PRN PRN Reason: Nausea/Vomiting Rosuvastatin Calcium (Crestor) 5 mg PO HS [facility] Last Admin: 06/24/17 21:29 Dose: 5 mg - Labs Labs: 06/15/17 06:07 06/15/17 06:07 - Head Exam Head Exam: NORMOCEPHALIC - Neck Exam Neck Exam: Normal Inspection - Respiratory Exam Respiratory Exam: NORMAL BREATHING PATTERN - Cardiovascular Exam Cardiovascular Exam: REGULAR RHYTHM - Neurological Exam Neurological Exam: Alert, Oriented x3 Assessment and Plan (1) CAD (coronary artery disease) Assessment & Plan: Stable no new symptoms. Have tolerated surgery very well. Continue current cardiac care. Status: Acute (2) PAD (peripheral artery disease) Assessment & Plan: S/P surgery, had dressing change today. Continue exercise as tolerated. Status: Acute (3) Hyperlipidemia Assessment & Plan: Stable, diet and exercise in addition to lipid lowering agents. Status: Acute
--- NOTE | 2017-06-26 00:44 | CARD ---
APPROVED REPORT EKG Measurement Heart [id number] [place] 164P20 [id number] <Conclusion> Sinus rhythm with frequent premature ventricular complexes Left axis deviation Low voltage QRS Inferior infarct, age undetermined Cannot rule out Anterior infarct, age undetermined Abnormal ECG
--- NOTE | 2017-06-26 00:45 | CARD ---
APPROVED REPORT EKG Measurement Heart [id number] 170P20 [id number] <Conclusion> Sinus rhythm with frequent premature ventricular complexes Possible Left atrial enlargement Left axis deviation Inferior infarct, age undetermined Anterolateral infarct, age undetermined Abnormal ECG
--- NOTE | 2017-06-26 00:45 | CARD ---
APPROVED REPORT EKG Measurement Heart [id number] [place] 160P28 [id number] <Conclusion> Sinus rhythm with frequent premature ventricular complexes Left axis deviation Inferior infarct, age undetermined Anterolateral infarct, age undetermined Abnormal ECG
[2017-06-26 00:50] VITALS: O2SAT 96
[2017-06-26] MEDS: Levothyroxine 25 MCG TAB PO SCH (06:30)
[2017-06-26] MEDS: (Novolin R) Insulin Human Regular 100 units/ml vial SC SCH ×2 (08:01→12:54)
[2017-06-26 08:12] VITALS: BP 141/61; PULSE 64; TEMP 98.1
== END 2017-06-26 16:40 | disposition home or self-care (01) | DRG 253 ==
LOC: C.9S 06:11 → C.9I 15:26 → C.6T 06-14 18:27
PROVIDERS: ADMIT Surgery Vascular Surgery; ATTEND Surgery Vascular Surgery
PROC: 06BP0ZZ Excision of Right Saphenous Vein, Open Approach (ICD-10-PCS; 2017-06-13)
PROC: 041K09L Bypass Right Femoral Artery to Popliteal Artery with Autologous Venous Tissue, Open Approach (ICD-10-PCS; principal; 2017-06-13 07:45)
DX: E11.51 Type 2 diabetes mellitus with diabetic peripheral angiopathy without gangrene (principal); I13.0 Hypertensive heart and chronic kidney disease with heart failure and stage 1 through stage 4 chronic kidney disease, or unspecified chronic kidney disease; E11.22 Type 2 diabetes mellitus with diabetic chronic kidney disease; I50.9 Heart failure, unspecified; I70.211 Atherosclerosis of native arteries of extremities with intermittent claudication, right leg; I73.9 Peripheral vascular disease, unspecified; E78.5 Hyperlipidemia, unspecified; I25.10 Atherosclerotic heart disease of native coronary artery without angina pectoris; J44.9 Chronic obstructive pulmonary disease, unspecified; N18.9 Chronic kidney disease, unspecified; R07.9 Chest pain, unspecified; Z85.46 Personal history of malignant neoplasm of prostate; F17.210 Nicotine dependence, cigarettes, uncomplicated; Z95.1 Presence of aortocoronary bypass graft; I25.2 Old myocardial infarction

== ENCOUNTER 2017-07-07 20:04 | Inpatient (IN) | payer MEDICARE, OTHER ==
[2017-07-07 20:05] VITALS: BMI 37.5
--- NOTE | 2017-07-07 21:04 | C.PDOC ---
History Of Present Illness Patient is a 76 y/o male who presents to the ED with a complaint of wound dehiscence of the right leg from a surgical wound performed by Dr. Baldwin recently. Patient was taken by ambulance to [facility] today where some of the kobi were removed, the wound cleansed, and packed. Denies fever or chills. Admits to drinking alcohol as usual last night as well as today. The patient denies any other physical complaints at this time. Time Seen by Provider: 07/07/17 20:46 Chief Complaint (Nursing): Lower Extremity Problem/Injury History Per: Patient History/Exam Limitations: no limitations Onset/Duration Of Symptoms: Hrs Current Symptoms Are (Timing): Still Present Recent travel outside of the [place]: No Past Medical History Reviewed: Historical Data, Nursing Documentation, Vital Signs Vital Signs: Last Vital Signs Temp 98.1 F 07/07/17 20:16 Pulse 116 H 07/07/17 20:16 Resp 24 07/07/17 20:16 BP 154/63 H 07/07/17 21:17 Pulse Ox 96 07/07/17 21:29 - Medical History PMH: Asthma, CHF, COPD, Depression, Fractures (left foot), Gastritis, HTN, Osteoporosis, Peripheral Edema, Pneumonia, Chronic Kidney Disease Surgical History: CABG (QUAD) - [facility] Procedures BYPASS R FEM ART TO POPLIT ART WITH AUTOL VN, OPEN APPROACH (06/13/17) CORONAR ARTERIOGR-2 CATH (08/16/99) CYSTOSCOPY NEC (05/03/14) DX ULTRASOUND-HEART (08/16/99) EXCISION OF RIGHT GREATER SAPHENOUS VEIN, OPEN APPROACH (06/13/17) INCISION OF PROSTATE (07/13/13) INSERT INDWELLING CATH (07/28/13) OTH TRANSURETHRAL PROSTATECTOMY (07/13/13) RETROGRADE PYELOGRAM (05/03/14) RT & LT HEART ANGIOCARD (08/16/99) RT/LEFT HEART CARD CATH (08/16/99) TRANSURETHRAL DESTRUCT PROSTATE TISS BY THERMOTHERAPY NEC (09/07/13) TU BLADDER CLEARANCE (09/07/13) Family History: States: Unknown Family Hx - Social History Hx Tobacco Use: No Hx Alcohol Use: Yes (1 beer once in a while) Hx Substance Use: No - Immunization History Hx Tetanus Toxoid Vaccination: No Hx Influenza Vaccination: No Hx Pneumococcal Vaccination: No Review Of Systems Constitutional: Negative for: Fever, Chills Cardiovascular: Negative for: Chest Pain Respiratory: Negative for: Shortness of Breath Gastrointestinal: Negative for: Nausea, Vomiting Physical Exam - Physical Exam Appears: Well, Non-toxic, No Acute Distress Skin: Normal Color, Warm, Dry Head: Atraumatic, Normacephalic Oral Mucosa: Moist Chest: Symmetrical Cardiovascular: Rhythm Regular, No Murmur Respiratory: Normal Breath Sounds, No Rales, No Rhonchi, No Wheezing Gastrointestinal/Abdominal: Soft, No Tenderness Extremity: Other (60 cm surgical wound from upper later R groin to distal medial R tibia; approximately 20 cm of dehiscence in lower portion. No foul smell; no pus or surrounding erythema. ) Neurological/Psych: Oriented x3, Normal Speech, Normal Cognition ED Course And Treatment - Laboratory Results Result Diagrams: 07/07/17 22:22 O2 Sat by Pulse Oximetry: 96 (Room air ) Pulse Ox Interpretation: Normal - Physician Consult Information Time Consulting Physician Contacted: 21:00 Physician Contacted: Boyd Baldwin Jr. Outcome Of Conversation: Advises to admit patient. Medical Decision Making Medical Decision Making: Plan: Librium administered. vice president medical affairs also consulted at 9:00pm; advised to admit patient as well. wound, cleaned, packed and wrapped by Surg Yvan in ED Disposition Doctor Will See Patient In The: Hospital Counseled Patient/Family Regarding: Studies Performed, Diagnosis - Disposition Disposition: HOSPITALIZED Disposition Time: 22:39 Condition: GOOD - Clinical Impression Clinical Impression: Wound dehiscence, surgical - Scribe Statement The provider has reviewed the documentation as recorded by the Scribbart Garcia All medical record entries made by the Lieibbart were at my direction and personally dictated by me. I have reviewed the chart and agree that the record accurately reflects my personal performance of the history, physical exam, medical decision making, and the department course for this patient. I have also personally directed, reviewed, and agree with the discharge instructions and disposition.
[2017-07-07] MEDS ORDERED: Albuterol HFA 90 mcg/actuation (8 g) IH PRN (22:17)
[2017-07-07 22:25] LABS: BASO % 0.5 % (0.0-2.0); EOS % 0.3 % (0.0-4.0); HEMATOCRIT 34.4 % (35.0-51.0); LYMPH # 0.7 K/uL (1.0-4.3); LYMPH % 10.8 % (20.0-40.0); MEAN CELL VOLUME 88.1 fL (80.0-94.0); MEAN CORPUSCULAR HEMOGLOBIN 28.6 pg (27.0-31.0); MEAN CORPUSCULAR HGB CONC 32.5 g/dL (33.0-37.0); MEAN PLATELET VOLUME 8.2 fL (7.2-11.7); MONO # 0.9 K/uL (0.0-0.8); MONO % 12.8 % (0.0-10.0); RED CELL DISTRIBUTION WIDTH 18.5 % (11.5-14.5); WHITE BLOOD COUNT 6.9 K/uL (4.8-10.8)
[2017-07-07 22:35] LABS: INR 1.1
[2017-07-07 22:37] LABS: ALB/GLOB RATIO 1.1 (1.0-2.1); ALKALINE PHOSPHATASE 97 U/L (38-126); ALT/SGPT 31 U/L (21-72); AST/SGOT 67 U/L (17-59); BILIRUBIN,TOTAL 1.3 mg/dL (0.2-1.3); BLOOD UREA NITROGEN 7 mg/dL (9-20); CALCIUM 8.7 mg/dl (8.6-10.4); CARBON DIOXIDE 20 mmol/L (22-30); CHLORIDE 102 mmol/L (98-107); GFR AFRICAN-AMERICAN > 60; GLUCOSE,RANDOM 234 mg/dL (75-110); POTASSIUM 5.2 mmol/L (3.6-5.2); SODIUM 136 mmol/L (132-148); TOTAL PROTEIN 7.7 g/dL (6.3-8.3)
[2017-07-07] MEDS ORDERED: Lactated Ringer's 1,000 ML ONE (22:40)
[2017-07-07] MEDS: Lactated Ringer's 1,000 ML IV SCH (22:43)
--- NOTE | 2017-07-08 00:36 | CP.PCM.HP ---
History of Present Illness - History of Present Illness History of Present Illness: H&P- Dr. Baldwin 76M PMH CAD, CABAG, HTN, DM, PVD, COPD, Prostate Ca, FemPop Bypass on 06/13/17 presented to [facility] ED w/ wound dehiscence of the right lower extremity. Pt first noticed it today and was [place] [facility] [place] some of [place] were removed and wound was cleansed. Denies current F/C CP/SOB N/V/D. PMH: as above, etoh dependance PSH: CABG, ex-lap from [facility], Fem Pop bypass w/ vein reversal, incision of prostate. ALL: NKDA SocialHx: ETOH dependance. Present on Admission - Present on Admission Any Indicators Present on Admission: No History of Uncontrolled Diabetes: Yes Review of Systems - Review of Systems All systems: reviewed and no additional remarkable complaints except - Constitutional Constitutional: As Per HPI Past Patient History - Infectious Disease Hx of Infectious Diseases: None - Past Medical History & Family History Past Medical History?: Yes - Past Social History Smoking Status: Heavy Smoker > 10 Cigarettes Daily - CARDIAC Hx Congestive Heart Failure: Yes Hx Hypertension: Yes Hx Peripheral Edema: Yes - PULMONARY Hx Asthma: Yes Hx Chronic Obstructive Pulmonary Disease (COPD): Yes Hx Pneumonia: Yes - NEUROLOGICAL Hx Neurological Disorder: No - HEENT Hx HEENT Problems: Yes (CAN'T SEE FROM EDGES OF EYES) Hx Cataracts: Yes (BILAT.) - RENAL Hx Chronic Kidney Disease: Yes - ENDOCRINE/METABOLIC Hx Endocrine Disorders: Yes Hx Diabetes Mellitus Type 1: Yes Hx Diabetes Mellitus Type 2: Yes - HEMATOLOGICAL/ONCOLOGICAL Hx Blood Disorders: No Hx Cancer: Yes (RADIATION X 28 DAYS PROSTATE) - INTEGUMENTARY Hx Dermatological Problems: No - MUSCULOSKELETAL/RHEUMATOLOGICAL Hx Fractures: Yes (left foot) Hx Osteoporosis: Yes - GASTROINTESTINAL Hx Gastritis: Yes - GENITOURINARY/GYNECOLOGICAL Hx Genitourinary Disorders: Yes Hx Hematuria: Yes Hx Prostate Cancer: Yes Hx Prostate Problems: Yes - PSYCHIATRIC Hx Depression: Yes Hx Substance Use: No - SURGICAL HISTORY Hx Coronary Artery Bypass Graft: Yes (QUAD) - ANESTHESIA Hx Anesthesia: Yes Hx Anesthesia Reactions: No (WOKE UP IN ICU) Hx Malignant Hyperthermia: No Meds Allergies/Adverse Reactions: Allergies Allergy/AdvReac Type Severity Reaction Status Date / Time No Known Allergies Allergy Verified 07/07/17 20:10 Physical Exam - Constitutional Appears: No Acute Distress - ENT Exam ENT Exam: Mucous Membranes Moist - Respiratory Exam Respiratory Exam: NORMAL BREATHING PATTERN. absent: Accessory Muscle Use, Rales , Rhonchi - Cardiovascular Exam Cardiovascular Exam: +S1, +S2 - GI/Abdominal Exam GI & Abdominal Exam: Distended, Soft. absent: Firm, Rigid, Tenderness - Extremities Exam Additional comments: +1 DP pulse on R. Wound dehiscence RLE. no active bleeding, induration, erythema, fluctuance. - Neurological Exam Neurological exam: Alert - Psychiatric Exam Psychiatric exam: Normal Affect - Skin Skin Exam: Normal Color Results - Vital Signs Recent Vital Signs: Last Vital Signs Temp 98.5 F 07/07/17 23:22 Pulse 6 L 07/07/17 23:22 Resp 18 07/07/17 23:22 BP 142/68 07/07/17 23:22 Pulse Ox 100 07/07/17 23:22 - Labs Result Diagrams: 07/07/17 22:22 07/07/17 22:22 Labs: Laboratory Results - last 24 hr 07/07/17 07/07/17 07/07/17 22:22 22:22 22:22 WBC 6.9 RBC 3.91 L Hgb 11.2 L Hct 34.4 L MCV 88.1 MCH 28.6 MCHC 32.5 L RDW 18.5 H Plt Count 153 MPV 8.2 Neut % (Auto) 75.6 H Lymph % (Auto) 10.8 L [place] % (Auto) 12.8 H Eos % (Auto) 0.3 Baso % (Auto) 0.5 Neut # 5.2 Lymph # 0.7 L [place] # 0.9 H Eos # 0.0 Baso # 0.0 PT 12.6 H INR 1.1 APTT 31 Sodium 136 Potassium 5.2 Chloride 102 Carbon Dioxide 20 L Anion Gap 19 BUN 7 L Creatinine 0.6 L Est GFR ( Amer) > 60 Est GFR (Non-Af Amer) > 60 Random Glucose 234 H Calcium 8.7 Total Bilirubin 1.3 AST 67 H ALT 31 Alkaline Phosphatase 97 Total Protein 7.7 Albumin 4.0 Globulin 3.7 Albumin/Globulin Ratio 1.1 Blood Type Antibody Screen 07/07/17 23:43 WBC RBC Hgb Hct MCV MCH MCHC RDW Plt Count MPV Neut % (Auto) Lymph % (Auto) [place] % (Auto) Eos % (Auto) Baso % (Auto) Neut # Lymph # [place] # Eos # Baso # PT INR APTT Sodium Potassium Chloride Carbon Dioxide Anion Gap BUN Creatinine Est GFR ( Amer) Est GFR (Non-Af Amer) Random Glucose Calcium Total Bilirubin AST ALT Alkaline Phosphatase Total Protein Albumin Globulin Albumin/Globulin Ratio Blood Type AB POSITIVE Antibody Screen Negative Assessment & Plan - Assessment and Plan (Free Text) Assessment: 76M s/p fempop bypass on 06/13 w/ wound dehiscence Plan: - NPO - IVF/Abx - Manage ETOH withdrawal - Pain control - Plan for surgery tomorrow w/ closure of wound - f/u labs - further recs per Dr. Nicolasa Blum PGY1
[2017-07-08] MEDS: Lactated Ringer's 1,000 ML IV SCH ×3 (07:10→23:47)
--- NOTE | 2017-07-08 08:00 | RAD ---
PROCEDURE: CHEST RADIOGRAPH, 1 VIEW HISTORY: Pre-op COMPARISON: Chest radiographs 06/09/2013. FINDINGS: LUNGS: Clear. PLEURA: No pneumothorax or pleural fluid seen. Mild right hemidiaphragm elevation is appreciated. CARDIOVASCULAR: Normal. OSSEOUS STRUCTURES: Sternotomy wires again noted. VISUALIZED UPPER ABDOMEN: Normal. OTHER FINDINGS: None. IMPRESSION: Mild elevation right hemidiaphragm is appreciated of an indeterminate etiology. No infiltrate, pleural effusion or definitive cardiomegaly is evident. No pulmonary vascular derangement.
[2017-07-08 08:36] LABS: HEMATOCRIT 31.7 % (35.0-51.0); MEAN CORPUSCULAR HEMOGLOBIN 27.1 pg (27.0-31.0); MEAN CORPUSCULAR HGB CONC 32.2 g/dL (33.0-37.0); MEAN PLATELET VOLUME 8.2 fL (7.2-11.7); RED CELL DISTRIBUTION WIDTH 18.1 % (11.5-14.5); WHITE BLOOD COUNT 7.6 K/uL (4.8-10.8)
[2017-07-08 08:38] LABS: MEAN CELL VOLUME 84.3 fL (80.0-94.0)
[2017-07-08 09:14] LABS: BLOOD UREA NITROGEN 7 mg/dL (9-20); CALCIUM 8.4 mg/dl (8.6-10.4); CARBON DIOXIDE 23 mmol/L (22-30); CHLORIDE 102 mmol/L (98-107); GFR AFRICAN-AMERICAN > 60; GLUCOSE,RANDOM 143 mg/dL (75-110); POTASSIUM 3.9 mmol/L (3.6-5.2); SODIUM 139 mmol/L (132-148)
[2017-07-08] MEDS ORDERED: Bacitracin 150,000 UNIT in Sodium Chloride 0.9% Irrig 3,000 ML IR SCH (09:56)
[2017-07-08] MEDS ORDERED: FORMOTEROL FUMARATE IH SCH (10:00)
[2017-07-08] MEDS ORDERED: Home Med 1 UNIT (Mirabegron [Myrbetriq] 50 MG) PO SCH (10:00)
[2017-07-08] MEDS ORDERED: BUDESONIDE IH SCH (10:00)
[2017-07-08] MEDS ORDERED: Home Med 1 UNIT (Dexlansoprazole [Dexilant] 60 MG) PO SCH (10:00)
[2017-07-08] MEDS: Cilostazol 100 mg Tab UD PO SCH ×2 (10:00→18:40)
[2017-07-08] MEDS ORDERED: INSULIN ASPART 5 UNIT SQ SCH (10:00)
[2017-07-08] MEDS ORDERED: Ipratropium 17 mcg/puff-200 puff/12.5 gm HFA Inh IH SCH (10:00)
[2017-07-08] MEDS ORDERED: Home Med 1 UNIT (Sitagliptin Phos/Metformin Hcl [Janumet 50-1,000 Mg Tablet] 1 TAB) PO SCH (10:00)
[2017-07-08] MEDS ORDERED: Home Med 1 UNIT (Febuxostat [Uloric] 40 MG) PO SCH (10:00)
[2017-07-08] MEDS ORDERED: QUINAPRIL 20 MG PO SCH (10:00)
[2017-07-08] MEDS ORDERED: Home Med 1 UNIT (Naloxegol Oxalate [Movantik] 25 MG) PO SCH (10:00)
[2017-07-08] MEDS ORDERED: Lactated Ringer's 1,000 ML IV ONE ×2 (10:47)
[2017-07-08] MEDS ORDERED: Midazolam 2 MG/2 ML VIAL ONE (11:05)
[2017-07-08] MEDS ORDERED: Propofol 10 mg/ml Inj (20 ML) ONE (11:05)
[2017-07-08] MEDS ORDERED: Etomidate 20 mg/10ml Inj IV ONE (11:11)
[2017-07-08] MEDS ORDERED: Succinylcholine Chloride 20 mg/ml Syr (5 ml) IV ONE (11:36)
[2017-07-08] MEDS ORDERED: Phenylephrine 10 mg/ml Inj ONE (11:48)
[2017-07-08] MEDS ORDERED: Lidocaine Hydrochloride 5 ML INJ ONE (11:49)
--- NOTE | 2017-07-08 12:06 | PCM.SURG1 ---
Surgeon's Initial Post Op Note - Surgeon's Notes Surgeon: Dr. Baldwin Skin Drier: Ben PGY1 Type of Anesthesia: General Endo Pre-Operative Diagnosis: RLE incisional wound dehiscence Operative Findings: see operative report Post-Operative Diagnosis: RLE incisional wound dehiscence Operation Performed: Irrigation and Closure of RLE incisional wound dehiscence Specimen/Specimens Removed: N/A Estimated Blood Loss: EBL {In ML}: 0 Blood Products Given: N/A Drains Used: No Drains Post-Op Condition: Good Date of Surgery/Procedure: 07/08/17 Time of Surgery/Procedure: 12:05
[2017-07-08] MEDS ORDERED: HYDROmorphone 0.5 mg/0.5 ml ISec IVP PRN (12:09)
[2017-07-08 15:28] VITALS: RESP 20
--- NOTE | 2017-07-08 15:50 | CARD ---
APPROVED REPORT EKG Measurement Heart [id number] <Conclusion> Sinus rhythm with frequent premature ventricular complexes in a pattern of bigeminy Possible Left atrial enlargement Left axis deviation Low voltage QRS Cannot rule out Anterior infarct, age undetermined Abnormal ECG
[2017-07-08] MEDS: (Novolog) Insulin Aspart, Recombinant 100 u/ml 10 ml vial SC SCH (18:37)
[2017-07-08] MEDS ORDERED: Fluticasone-Salmeterol 250-50mcg Diskus IH SCH (20:00)
[2017-07-08] MEDS: Insulin Detemir 100 units/ml Vial (Levemir) SC SCH (22:32)
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
--- NOTE | 2017-07-09 07:50 | CP.PCM.PN ---
Subjective - Date & Time of Evaluation Date of Evaluation: 07/09/17 Time of Evaluation: 07:46 - Subjective Subjective: Vascular Surgery Progress Note for Dr. Baldwin Patient seen and examined at bedside. Patient has minimal urine output overnight and was given flomax. Urine output was 175 cc in last 12 hrs. He is s/ p irrigation and partial closure of incisional wound dehiscence of RLE POD#1. Patient complaining of mild edema of LUE. He denies any pain in RLE. Patient has no other complaints at this time. Objective - Vital Signs/Intake and Output Vital Signs (last 24 hours): Temp Pulse Resp BP Pulse Ox 99.6 F 82 20 126/78 96 07/09/17 00:00 07/09/17 00:00 07/09/17 00:00 07/09/17 00:00 07/09/17 00:00 Intake and Output: 07/09/17 07/09/17 06:59 18:59 Intake Total 400 800 Output Total 350 175 Balance 50 625 - Medications Medications: Current Medications Albuterol (Ventolin Hfa 90 Mcg/Actuation (8 G)) 2 puff IH RQ6 PRN PRN Reason: Shortness of Breath Allopurinol (Zyloprim) 100 mg PO DAILY [facility] Atenolol (Tenormin) 25 mg PO DAILY [facility] Last Admin: 07/08/17 10:26 Dose: 25 mg Cilostazol (Pletal) 100 mg PO BID [facility] Last Admin: 07/08/17 18:40 Dose: 100 mg Enalapril Maleate (Vasotec) 10 mg PO DAILY [facility] Escitalopram Oxalate (Lexapro) 10 mg PO DAILY [facility] Last Admin: 07/08/17 18:39 Dose: Not Given Famotidine (Pepcid) 20 mg IVP Q12 [facility] Last Admin: 07/08/17 22:32 Dose: 20 mg Furosemide (Lasix) 20 mg PO DAILY PRN PRN Reason: Swelling Heparin Sodium (Porcine) (Heparin) 5,000 units SC Q8 [facility] Last Admin: 07/09/17 06:16 Dose: 5,000 units Home Med (Mirabegron [Myrbetriq]) 50 mg PO DAILY [facility] Home Med (Naloxegol Oxalate [Movantik]) 25 mg PO DAILY [facility] Hydromorphone HCl (Dilaudid) 1 mg IVP Q4H PRN PRN Reason: Pain, moderate (4-7) Last Admin: 07/08/17 23:45 Dose: 1 mg Hydromorphone HCl (Dilaudid) 0.5 mg IVP Q10M PRN PRN Reason: Pain, moderate (4-7) Lactated Ringer's (Lactated Ringer's) 1,000 mls @ 125 mls/hr IV .Q8H [facility] Last Admin: 07/08/17 23:47 Dose: Not Given Vancomycin HCl 1 gm/ Sodium (Chloride) 250 mls @ 166.7 mls/hr IVPB Q12 [facility] Last Admin: 07/08/17 22:31 Dose: 166.7 mls/hr Insulin Aspart (Novolog) 5 unit SC TIDAC [facility] Last Admin: 07/08/17 18:37 Dose: 5 unit Insulin Detemir (Levemir) 20 unit SC [facility] Last Admin: 07/08/17 22:32 Dose: 20 unit Ipratropium [place] (Atrovent Hfa) 1 puff IH QID [facility] Metformin HCl (Glucophage) 1,000 mg PO BID [facility] Last Admin: 07/08/17 18:36 Dose: 1,000 mg Pantoprazole Sodium (Protonix Ec Tab) 40 mg PO DAILY [facility] Rosuvastatin Calcium (Crestor) 5 mg PO [facility] Last Admin: 07/08/17 22:33 Dose: 5 mg Fluticasone/Salmeterol (Advair Diskus 250/50) 1 puff IH RBID [facility] Sitagliptin Phosphate (Januvia) 50 mg PO BID [facility] Last Admin: 07/08/17 18:37 Dose: 50 mg - Labs Labs: 07/08/17 08:15 07/08/17 08:15 PT 12.6 SECONDS (9.7-12.2) H 07/07/17 22:22 INR 1.1 07/07/17 22:22 APTT 31 SECONDS (21-34) 07/07/17 22:22 - Constitutional Appears: No Acute Distress - Head Exam Head Exam: ATRAUMATIC, NORMOCEPHALIC - ENT Exam ENT Exam: Mucous Membranes Dry - Respiratory Exam Respiratory Exam: NORMAL BREATHING PATTERN - Cardiovascular Exam Cardiovascular Exam: REGULAR RHYTHM - GI/Abdominal Exam GI & Abdominal Exam: Soft. absent: Distended, Tenderness - Extremities Exam Extremities Exam: Normal Capillary Refill Additional comments: LUE edema RLE dressing clean, dry, intact this AM - Neurological Exam Neurological Exam: Alert, Awake, CN II-XII Intact, Oriented x3 - Psychiatric Exam Psychiatric exam: Normal Affect, Normal Mood - Skin Skin Exam: Dry, Warm Assessment and Plan - Assessment and Plan (Free Text) Plan: 76 M who is s/p irrigation and partial closure of incisional wound dehiscence of RLE POD#1. -Bedrest until this afternoon -Keep leg elevated -Strict I's & O's -f/u Case management for DC planning -Further recs as per Dr. Nicolasa oCntreras PGY1
[2017-07-09] MEDS: (Novolog) Insulin Aspart, Recombinant 100 u/ml 10 ml vial SC SCH ×3 (08:37→16:30)
[2017-07-09] MEDS ORDERED: Home Med 1 UNIT (Naloxegol Oxalate [Movantik] 25 MG) PO SCH (10:00)
[2017-07-09] MEDS: Cilostazol 100 mg Tab UD PO SCH ×2 (10:13→18:55)
[2017-07-09] MEDS: Pantoprazole 40 mg EC Tab PO SCH (10:14)
[2017-07-09] MEDS: Insulin Detemir 100 units/ml Vial (Levemir) SC SCH (22:58)
--- NOTE | 2017-07-10 07:34 | CP.PCM.PN ---
Subjective - Date & Time of Evaluation Date of Evaluation: 07/10/17 Time of Evaluation: 07:30 - Subjective Subjective: Patient was seen and examined at bedside in no acute distress. Patient laying comfortably in bed and has no complaints. 12-point review of systems otherwise negative. Objective - Vital Signs/Intake and Output Vital Signs (last 24 hours): Temp Pulse Resp BP Pulse Ox 98.3 F 59 L 20 131/75 95 07/09/17 23:55 07/09/17 23:55 07/09/17 23:55 07/09/17 23:55 07/09/17 23:55 - Medications Medications: Current Medications Albuterol (Ventolin Hfa 90 Mcg/Actuation (8 G)) 2 puff IH RQ6 PRN PRN Reason: Shortness of Breath Allopurinol (Zyloprim) 100 mg PO DAILY [facility] Last Admin: 07/09/17 10:14 Dose: 100 mg Atenolol (Tenormin) 25 mg PO DAILY [facility] Last Admin: 07/09/17 10:14 Dose: 25 mg Cilostazol (Pletal) 100 mg PO BID [facility] Last Admin: 07/09/17 18:55 Dose: 100 mg Enalapril Maleate (Vasotec) 10 mg PO DAILY [facility] Last Admin: 07/09/17 10:14 Dose: Not Given Escitalopram Oxalate (Lexapro) 10 mg PO DAILY [facility] Last Admin: 07/09/17 10:14 Dose: 10 mg Famotidine (Pepcid) 20 mg IVP Q12 [facility] Last Admin: 07/09/17 22:52 Dose: 20 mg Furosemide (Lasix) 20 mg PO DAILY PRN PRN Reason: Swelling Last Admin: 07/09/17 10:15 Dose: 20 mg Heparin Sodium (Porcine) (Heparin) 5,000 units SC Q8 [facility] Last Admin: 07/10/17 05:52 Dose: 5,000 units Home Med (Mirabegron [Myrbetriq]) 50 mg PO DAILY [facility] Home Med (Naloxegol Oxalate [Movantik]) 25 mg PO DAILY [facility] Hydromorphone HCl (Dilaudid) 0.5 mg IVP Q10M PRN PRN Reason: Pain, moderate (4-7) Vancomycin HCl 1 gm/ Sodium (Chloride) 250 mls @ 166.7 mls/hr IVPB Q12 [facility] Last Admin: 07/09/17 22:57 Dose: 166.7 mls/hr Insulin Aspart (Novolog) 5 unit SC TIDAC [facility] Last Admin: 07/09/17 16:30 Dose: 5 unit Insulin Detemir (Levemir) 20 unit SC HS [facility] Last Admin: 07/09/17 22:58 Dose: 20 unit Ipratropium [place] (Atrovent Hfa) 1 puff IH RQID [facility] Metformin HCl (Glucophage) 1,000 mg PO BID [facility] Last Admin: 07/09/17 18:04 Dose: 1,000 mg Pantoprazole Sodium (Protonix Ec Tab) 40 mg PO DAILY [facility] Last Admin: 07/09/17 10:14 Dose: 40 mg Rosuvastatin Calcium (Crestor) 5 mg PO HS [facility] Last Admin: 07/09/17 22:53 Dose: 5 mg Fluticasone/Salmeterol (Advair Diskus 250/50) 1 puff IH RBID [facility] Sitagliptin Phosphate (Januvia) 50 mg PO BID [facility] Last Admin: 07/09/17 18:04 Dose: 50 mg - Labs Labs: 07/08/17 08:15 07/08/17 08:15 PT 12.6 SECONDS (9.7-12.2) H 07/07/17 22:22 INR 1.1 07/07/17 22:22 APTT 31 SECONDS (21-34) 07/07/17 22:22 - Head Exam Head Exam: ATRAUMATIC, NORMAL INSPECTION - Eye Exam Eye Exam: EOMI, Normal appearance - ENT Exam ENT Exam: Mucous Membranes Moist - Respiratory Exam Respiratory Exam: NORMAL BREATHING PATTERN. absent: Respiratory Distress - Cardiovascular Exam Cardiovascular Exam: +S1, +S2 - GI/Abdominal Exam GI & Abdominal Exam: Soft. absent: Tenderness - Extremities Exam Additional comments: LUE edema; RLE dressing dry, intact, serosanginous drainage noted. - Neurological Exam Neurological Exam: Alert, Awake, Oriented x3 - Psychiatric Exam Psychiatric exam: Normal Affect, Normal Mood - Skin Skin Exam: Normal Color, Warm Assessment and Plan - Assessment and Plan (Free Text) Assessment: 76 year old male s/p irrigation and partial closure of incisional wound dehiscence of right lower extremity. POD#2. - Dressing change today. - Continue physical therapy. OOB today. - Follow up social work for rehab placement.
[2017-07-10] MEDS ORDERED: Ipratropium 17 mcg/puff-200 puff/12.5 gm HFA Inh IH SCH (08:00)
[2017-07-10] MEDS: Pantoprazole 40 mg EC Tab PO SCH (09:23)
[2017-07-10] MEDS: (Novolog) Insulin Aspart, Recombinant 100 u/ml 10 ml vial SC SCH ×3 (09:24→18:34)
[2017-07-10] MEDS: Cilostazol 100 mg Tab UD PO SCH ×2 (09:29→19:03)
[2017-07-10] MEDS: Oxycodone/Acetaminophen 5/325 mg Tab PO PRN ×2 (12:00→21:55)
[2017-07-10] MEDS: Tolterodine 4 mg ER Cap PO SCH (19:02)
[2017-07-10] MEDS: Insulin Detemir 100 units/ml Vial (Levemir) SC SCH (21:55)
[2017-07-11] MEDS: Oxycodone/Acetaminophen 5/325 mg Tab PO PRN ×3 (05:44→15:54)
--- NOTE | 2017-07-11 08:49 | CP.PCM.PN ---
Subjective - Date & Time of Evaluation Date of Evaluation: 07/11/17 Time of Evaluation: 08:46 - Subjective Subjective: Patient was seen and examined at bedside in no acute distress. Patient reports he is feeling well except for having pain in his right leg. He reports the pain is improving. 12-point review of systems otherwise negative. Objective - Vital Signs/Intake and Output Vital Signs (last 24 hours): Temp Pulse Resp BP Pulse Ox 97.5 F L 61 20 132/48 L 100 07/11/17 08:09 07/11/17 08:09 07/11/17 08:09 07/11/17 08:09 07/11/17 08:09 - Medications Medications: Current Medications Albuterol (Ventolin Hfa 90 Mcg/Actuation (8 G)) 2 puff IH RQ6 PRN PRN Reason: Shortness of Breath Allopurinol (Zyloprim) 100 mg PO DAILY [facility] Last Admin: 07/10/17 09:21 Dose: 100 mg Atenolol (Tenormin) 25 mg PO DAILY [facility] Last Admin: 07/10/17 09:23 Dose: Not Given Cilostazol (Pletal) 100 mg PO BID [facility] Last Admin: 07/10/17 19:03 Dose: 100 mg Docusate Sodium (Colace) 100 mg PO BID [facility] Last Admin: 07/10/17 19:02 Dose: 100 mg Enalapril Maleate (Vasotec) 10 mg PO DAILY [facility] Last Admin: 07/10/17 09:22 Dose: 10 mg Escitalopram Oxalate (Lexapro) 10 mg PO DAILY [facility] Last Admin: 07/10/17 09:24 Dose: 10 mg Famotidine (Pepcid) 20 mg IVP Q12 [facility] Last Admin: 07/10/17 21:55 Dose: 20 mg Furosemide (Lasix) 20 mg PO DAILY PRN PRN Reason: Swelling Last Admin: 07/10/17 09:22 Dose: 20 mg Heparin Sodium (Porcine) (Heparin) 5,000 units SC Q8 [facility] Last Admin: 07/11/17 05:47 Dose: 5,000 units Vancomycin HCl 1 gm/ Sodium (Chloride) 250 mls @ 166.7 mls/hr IVPB Q12 [facility] Last Admin: 07/10/17 22:33 Dose: 166.7 mls/hr Insulin Aspart (Novolog) 5 unit SC TIDAC [facility] Last Admin: 07/10/17 18:34 Dose: Not Given Insulin Detemir (Levemir) 20 unit SC HS [facility] Last Admin: 07/10/17 21:55 Dose: 20 unit Ipratropium [place] (Atrovent Hfa) 1 puff IH RQID [facility] Lactulose (Enulose) 20 gm PO BID [facility] Last Admin: 07/10/17 19:02 Dose: 20 gm Metformin HCl (Glucophage) 1,000 mg PO BID [facility] Last Admin: 07/10/17 19:02 Dose: 1,000 mg Oxycodone/Acetaminophen (Percocet 5/325 Mg Tab) 1 tab PO Q4H PRN PRN Reason: Pain, moderate (4-7) Stop: 07/13/17 11:47 Last Admin: 07/11/17 05:44 Dose: 1 tab Pantoprazole Sodium (Protonix Ec Tab) 40 mg PO DAILY [facility] Last Admin: 07/10/17 09:23 Dose: 40 mg Rosuvastatin Calcium (Crestor) 5 mg PO [facility] Last Admin: 07/10/17 22:34 Dose: 5 mg Fluticasone/Salmeterol (Advair Diskus 250/50) 1 puff IH RBID [facility] Sitagliptin Phosphate (Januvia) 50 mg PO BID [facility] Last Admin: 07/10/17 19:02 Dose: 50 mg Tolterodine Tartrate (Detrol [place]) 4 mg PO DAILY [facility] Last Admin: 07/10/17 19:02 Dose: 4 mg - Labs Labs: 07/08/17 08:15 07/08/17 08:15 PT 12.6 SECONDS (9.7-12.2) H 07/07/17 22:22 INR 1.1 07/07/17 22:22 APTT 31 SECONDS (21-34) 07/07/17 22:22 - Head Exam Head Exam: ATRAUMATIC, NORMAL INSPECTION - Eye Exam Eye Exam: EOMI - ENT Exam ENT Exam: Mucous Membranes Moist - Respiratory Exam Respiratory Exam: NORMAL BREATHING PATTERN. absent: Respiratory Distress - Cardiovascular Exam Cardiovascular Exam: +S1, +S2. absent: Bradycardia, Tachycardia - GI/Abdominal Exam GI & Abdominal Exam: Soft, Normal Bowel Sounds. absent: Tenderness - Extremities Exam Additional comments: RLE: dressing intact, serous drainage. Posterior tibial pulse present - Neurological Exam Neurological Exam: Alert, Awake - Psychiatric Exam Psychiatric exam: Normal Affect, Normal Mood - Skin Skin Exam: Dry, Intact, Warm Assessment and Plan - Assessment and Plan (Free Text) Assessment: 76 year old male s/p irrigation and partial closure of incisional wound dehiscence of right lower extremity. POD#3. - Continue physical therapy. Encourage OOB and ambulation. Continue leg elevation. - Continue pain control and antibiotics. - Follow up social work for rehab placement.
[2017-07-11] MEDS: (Novolog) Insulin Aspart, Recombinant 100 u/ml 10 ml vial SC SCH ×2 (10:55→13:00)
[2017-07-11] MEDS: Pantoprazole 40 mg EC Tab PO SCH (10:56)
[2017-07-11] MEDS: Cilostazol 100 mg Tab UD PO SCH (10:58)
[2017-07-11] MEDS: Tolterodine 4 mg ER Cap PO SCH (10:59)
[2017-07-11 15:46] VITALS: BP 133/59; PULSE 55; TEMP 97.6; O2SAT 97
--- NOTE | 2017-07-11 16:53 | CP.PCM.DIS ---
Provider - Provider Date of Admission: 07/07/17 21:11 Attending physician: Boyd Baldwin Jr, MD Primary care physician: Sejal Pritchett MD Time Spent in preparation of Discharge (in minutes): 45 Hospital Course - Lab Results Lab Results: Most Recent Lab Values WBC 7.6 K/uL (4.8-10.8) 07/08/17 08:15 RBC 3.76 Mil/uL (4.40-5.90) L 07/08/17 08:15 Hgb 10.2 g/dL (12.0-18.0) L 07/08/17 08:15 Hct 31.7 % (35.0-51.0) L 07/08/17 08:15 MCV 84.3 fL (80.0-94.0) D 07/08/17 08:15 MCH 27.1 pg (27.0-31.0) 07/08/17 08:15 MCHC 32.2 g/dL (33.0-37.0) L 07/08/17 08:15 RDW 18.1 % (11.5-14.5) H 07/08/17 08:15 Plt Count 205 K/uL (130-400) 07/08/17 08:15 MPV 8.2 fL (7.2-11.7) 07/08/17 08:15 Neut % (Auto) 75.6 % (50.0-75.0) H 07/07/17 22:22 Lymph % (Auto) 10.8 % (20.0-40.0) L 07/07/17 22:22 [place] % (Auto) 12.8 % (0.0-10.0) H 07/07/17 22:22 Eos % (Auto) 0.3 % (0.0-4.0) 07/07/17 22:22 Baso % (Auto) 0.5 % (0.0-2.0) 07/07/17 22:22 Neut # 5.2 K/uL (1.8-7.0) 07/07/17 22:22 Lymph # 0.7 K/uL (1.0-4.3) L 07/07/17 22:22 [place] # 0.9 K/uL (0.0-0.8) H 07/07/17 22:22 Eos # 0.0 K/uL (0.0-0.7) 07/07/17 22:22 Baso # 0.0 K/uL (0.0-0.2) 07/07/17 22:22 PT 12.6 SECONDS (9.7-12.2) H 07/07/17 22:22 INR 1.1 07/07/17 22:22 APTT 31 SECONDS (21-34) 07/07/17 22:22 Sodium 139 mmol/L (132-148) 07/08/17 08:15 Potassium 3.9 mmol/L (3.6-5.2) 07/08/17 08:15 Chloride 102 mmol/L (98-107) 07/08/17 08:15 Carbon Dioxide 23 mmol/L (22-30) 07/08/17 08:15 Anion Gap 17 (10-20) 07/08/17 08:15 BUN 7 mg/dL (9-20) L 07/08/17 08:15 Creatinine 0.6 MG/DL (0.8-1.5) L 07/08/17 08:15 Est GFR ( Amer) > 60 07/08/17 08:15 Est GFR (Non-Af Amer) > 60 07/08/17 08:15 POC Glucose (mg/dL) 177 mg/dL (65-110) H 07/11/17 11:41 Random Glucose 143 mg/dL (75-110) H 07/08/17 08:15 Calcium 8.4 mg/dl (8.6-10.4) L 07/08/17 08:15 Total Bilirubin 1.3 mg/dL (0.2-1.3) 07/07/17 22:22 AST 67 U/L (17-59) H 07/07/17 22:22 ALT 31 U/L (21-72) 07/07/17 22:22 Alkaline Phosphatase 97 U/L (38-126) 07/07/17 22:22 Total Protein 7.7 g/dL (6.3-8.3) 07/07/17 22:22 Albumin 4.0 g/dL (3.5-5.0) 07/07/17 22:22 Globulin 3.7 gm/dL (2.2-3.9) 07/07/17 22:22 Albumin/Globulin Ratio 1.1 (1.0-2.1) 07/07/17 22:22 Blood Type AB POSITIVE 07/07/17 23:43 Antibody Screen Negative 07/07/17 23:43 - Hospital Course Hospital Course: Patient presented to the hospital with wound dehiscence s/p right femoral- popliteal bypass. Patient went to the operating room for irrigation and partial closure of the incisional wound dehiscence. Patient is feeling well and pain is improving. Dressing changed today and is clean, dry, and intact. Patient is stable for discharge to home. Visiting nursing services will be provided for daily wound care. - Date & Time of H&P Date of H&P: 07/11/17 Time of H&P: 16:53 Discharge Exam - Head Exam Head Exam: ATRAUMATIC, NORMAL INSPECTION Discharge Plan - Follow Up Plan Condition: GOOD Disposition: HOME/ ROUTINE Additional Instructions: Patient is stable for discharge to home as per Dr. Baldwin. Patient should continue home medications. Visiting nurse services will be provided for wound care. Patient must keep leg elevated continuously. Patient must follow up with Dr. Baldwin within one week of discharge. Referrals: Sejal Pritchett MD [Primary Care Provider] -
== END 2017-07-11 18:17 | disposition home or self-care (01) | DRG 908 ==
LOC: SUPCPDRO 20:04 → C.ER 20:04 → C.9E 21:11 → C.5S 22:45
PROVIDERS: ADMIT Surgery Vascular Surgery; ATTEND Surgery Vascular Surgery
PROC: 0YQ90ZZ Repair Right Lower Extremity, Open Approach (ICD-10-PCS; principal; 2017-07-07)
DX: T81.31XA Disruption of external operation (surgical) wound, not elsewhere classified, initial encounter (principal); I13.0 Hypertensive heart and chronic kidney disease with heart failure and stage 1 through stage 4 chronic kidney disease, or unspecified chronic kidney disease; I50.9 Heart failure, unspecified; E11.22 Type 2 diabetes mellitus with diabetic chronic kidney disease; E11.51 Type 2 diabetes mellitus with diabetic peripheral angiopathy without gangrene; J44.9 Chronic obstructive pulmonary disease, unspecified; Z85.46 Personal history of malignant neoplasm of prostate; I25.10 Atherosclerotic heart disease of native coronary artery without angina pectoris; Z95.1 Presence of aortocoronary bypass graft; F17.200 Nicotine dependence, unspecified, uncomplicated; F10.20 Alcohol dependence, uncomplicated; N18.9 Chronic kidney disease, unspecified; Z79.4 Long term (current) use of insulin; M81.0 Age-related osteoporosis without current pathological fracture